=== PATIENT | male | born 1965 | race Caucasian/White ===

== ENCOUNTER → 2024-08-25 11:46 | Day surgery (SDC) | payer OTHER, SELFPAY ==
[2024-08-25] VITALS (8 sets, daily range): BP systolic 129–179; BP diastolic 90–118; BMI 31.7
[2024-08-25] MEDS: LOW STRENGTH ASPIRIN 81 MG PO (12:43)
[2024-08-25] MEDS: NSS 309 ML IV (12:44)
[2024-08-25 12:45] LABS: Glucose - Point of Care 167 mg/dl (70-99)
[2024-08-25 18:00] LABS: Glucose - Point of Care 122 mg/dl (70-99)
--- NOTE | 2024-08-25 20:55 | ITS.CL.PN ---
[employer] - Procedure Note
Procedure
Procedure Note:
CARDIAC CATHETERIZATION REPORT
Date of Procedure: 08/25/2024
Referring: Dr. Tera Morales DO
Indication: anginal chest pain, positive cardiac stress test
PROCEDURE(S)
1. left heart catheterization
2. coronary angiography
3. iFR of LAD
4. moderate sedation > 15 minutes
5. ultrasound guided vascular access
ACCESS: 6F right radial artery (closure: radial band)
CATHETERS
1. 6F JR4
2. 6F JL4
3. 6F EBU3.75 guide catheter
Moderate Sedation: Greater than 15 minutes of moderate sedation was utilized. An independent medical library assistant was present to assist with and help manage the patient's level of consciousness and physiologic status.
Ultrasound Guided Vascular Access (right radial artery): Ultrasound was utilized for vascular access. The vessel was visualized under ultrasound and noted to be patent. An image of the vessel was stored permanently in the patient's medical record.
Under direct ultrasound guidance, vascular access was obtained using a modified Seldinger technique and a 6 Portuguese sheath was placed.
HEMODYNAMIC DATA
LV 125/17 (EDP 28) mmHg
AO 135/83 (mean 104) mmHg
CORONARY ANGIOGRAPHY
Dominance: right
LM: Large with mild disease
LAD: Large vessel giving rise to a large D1 and small D2. There are stents in the proximal to mid LAD jailing the D1 with moderate ISR. There is a stent in the D1 with moderate ISR. The remainder the vessel has diffuse mild disease.
LCx: Large vessel giving rise to a small OM1, large OM 2, and moderate caliber OM 3. The vessel is totally occluded before OM2 with OM2 and OM3 filled retrograde via robust left to left collaterals.
RCA: Large vessel with multiple stents in the proximal to mid portion. There is a total occlusion proximally within stent. There are faint right to right collaterals and robust [id number] collaterals filling the distal RPDA/PRL system.
iFR of LAD
An Omni wire was flushing and zeroed outside the body and then advanced to the left main. The wire introducer was removed and the system flush, after which pressure of the wire and guide were normalized. The wire was advanced to the mid LAD and iFR
recorded at 0.83. iFR pullback was performed noting the majority of the contribution from the stented portion of the proximal LAD. On return to the left main, iFR appropriately normalized to ~1.0, confirming lack of wire drift.
RADIATION: dose 540 mGy; DAP 33.4 Gy*cm2; fluoroscopy time 8.1 min
CONCLUSIONS
1. Severe triple-vessel coronary artery disease in a right dominant system.
2. Elevated LV filling pressure and no aortic stenosis
RECOMMENDATIONS
1. expectant management after cardiac catheterization via right radial approach
2. aggressive secondary prevention of coronary artery disease
3. referral for coronary artery bypass grafting given severe, high syntax score, three-vessel coronary artery disease in a symptomatic, young, diabetic patient with reduced EF
Copy to: Dr. Tera Morales DO (application technical designer); Dr. Gil Avila MD (PCP)
Signed: Prashanth Marcus MD, PhD
[2024-08-28 14:50] LABS: ACT-LR - POC > 397 Seconds (116-155)
== END | disposition home or self-care (01) ==
LOC: CATH 11:46
PROVIDERS: ATTENDING PHYSICIAN Student in an Organized Health Care Education/Training Program; CONSULT PHYSICIAN Thoracic Surgery (Cardiothoracic Vascular Surgery); FAMILY PHYSICIAN Family Medicine; OTHER PHYSICIAN Internal Medicine Cardiovascular Disease
DX: I25.119 Atherosclerotic heart disease of native coronary artery with unspecified angina pectoris (principal); Z79.82 Long term (current) use of aspirin; Z79.84 Long term (current) use of oral hypoglycemic drugs; E11.9 Type 2 diabetes mellitus without complications
CPT/HCPCS: 99152; 93799; 76937; 82962; 85347; 93005; 93458; C1769; C1894; Q9967

== ENCOUNTER 2024-09-14 04:55 | Inpatient (IN) | payer OTHER, SELFPAY ==
[2024-09-07 12:06] VITALS: BMI 32.3
[2024-09-07 13:03] LABS: Hemoglobin 17.6 g/dL (13.0-18.0); Mean Corp Hgb Conc. 34.5 g/dL (33.0-37.0); Mean Corpuscular Hgb 32.2 pg (27.0-31.0); Mean Corpuscular Volume 93.2 fL (80.0-94.0); Mean Platelet Volume 9.7 fL (7.4-10.4); Platelet Count 230 10^3/uL (130-400); Red Blood Cell Count 5.47 10^6/uL (4.70-6.10); Red Cell Dist. Width 13.1 % (11.5-14.5); White Blood Cell Count 7.6 10^3/uL (4.8-10.8)
[2024-09-07 13:05] LABS: INR 0.95
[2024-09-07 13:06] LABS: APTT 33.5 Sec (23.4-35.0)
[2024-09-07 13:16] LABS: Urine Albumin 1+ (Neg - Trace); Urine Bilirubin Negative (Negative); Urine Character Clear (Clear); Urine Color Yellow; Urine Glucose 3+ (Negative); Urine Ketone Negative (Negative); Urine Leukocyte Trace (Negative); Urine Nitrite Negative (Negative); Urine Occult Blood Negative (Negative); Urine Specific Gravity 1.015 (<1.030); Urine Urobilinogen Negative (Neg - 1+)
--- NOTE | 2024-09-07 13:41 | CM ---
Chart reviewed. Met with the patient in PAT. Reviewed preoperative and postoperative instructions and restrictions, along with showering guidelines. Gave patient 2 soaps. Patient is independent of ADLS, lives with a roommate in a 2 S[address], full
flight of steps to enter, 0 DME. Patient is agreeable to a home visit by CT Transitional RN. Plan is for the patient to return home by CT Transitional RN.
[2024-09-07 14:23] LABS: Glycohemoglobin (HgbA1c) 8.8 % (4.0-5.6)
[2024-09-07 14:47] LABS: Urine Red Blood Cell 0-2 /HPF (0-2); Urine Squamous Cell 0-2 /LPF (Few)
[2024-09-07 15:00] LABS: ALT (SGPT) 28 U/L (0-50); AST (SGOT) 25 U/L (17-59); Alkaline Phosphatase 113 U/L (38-126); Blood Urea Nitrogen 11 mg/dl (9-20); Calcium 9.8 mg/dl (8.4-10.2); Carbon Dioxide 30 mmol/L (22-30); Chloride 99 mmol/L (98-107); Direct Bilirubin 0.1 mg/dl (0.0-0.4); Estimated Creatinine Clearance 120 ml/min; Glucose 131 mg/dl (70-99); Potassium 4.8 mmol/L (3.5-5.1); Sodium 138 mmol/L (135-145); Total Bilirubin 0.7 mg/dl (0.2-1.3); Total Protein 7.4 g/dl (6.3-8.2); eGFR > 60.00
[2024-09-14] VITALS (12 sets, daily range): BP systolic 90–129; BP diastolic 67–95; BMI 31.3
[2024-09-14] MEDS: LOPRESSOR 25 MG PO (05:32)
[2024-09-14] MEDS: PROTONIX 40 MG PO (05:33)
[2024-09-14] MEDS: MAGNESIUM OXIDE 500 MG PO (05:33)
[2024-09-14] MEDS: BACTROBAN 2% OINTMENT 1 APPLIC NASAL ×2 (05:38→20:20)
--- NOTE | 2024-09-14 06:36 | W.CVOR.SURPR ---
Addendum entered and electronically signed by Jaime Dominique MD 09/14/24 06:40:
Pt. stopped smoking yesterday
L radial artery unable to be used for conduit secondary to incomplete arch w/ radial artery dependent flow in 1st digit. This is possibly secondary to remote injury to his left hand requiring reconstruction especially given the brisk capillary
refill observed elsewhere on [place] testing in the office. Will proceed with BLANCA and GSV for conduit.
Original Note:
CVOR Surgeon Immed Pre Op
-
I have examined this patient prior to performance of the scheduled procedure.
The patient's condition is unchanged from the time of the dictated/written History and
Physical and the patient is able to undergo the scheduled procedure.
[2024-09-14 07:43] LABS: ACT+ - POC 101 Seconds (82-134)
[2024-09-14 08:24] LABS: Urine Albumin 3+ (Neg - Trace); Urine Bilirubin Negative (Negative); Urine Character Clear (Clear); Urine Color Yellow; Urine Glucose Negative (Negative); Urine Ketone Negative (Negative); Urine Leukocyte Negative (Negative); Urine Nitrite Negative (Negative); Urine Occult Blood 1+ (Negative); Urine Urobilinogen Negative (Neg - 1+)
[2024-09-14 09:24] LABS: Urine Mucus Many; Urine Squamous Cell 0-2 /LPF (Few)
[2024-09-14 09:25] LABS: Urine Amorphous Seen
[2024-09-14 09:26] LABS: Urine Bacteria Few (Negative); Urine Red Blood Cell 0-2 /HPF (0-2); Urine White Cell 0-2 /HPF (0-5)
[2024-09-14 09:56] LABS: B.E. - POC 0.7 mmol/L; Glucose - POC 225 mg/dl (70-99); HCO3 - POC 29 mmol/L (21-28); Hematocrit - POC 38 % PCV (42-52); Hemodilution- POC Yes; Hemoglobin Calculated - POC 12.9; Ionized Calcium - POC 1.25 mmol/L (1.15-1.33); Lactate - POC 0.96 mmol/L (0.36-0.75); O2 Saturation %Calculated-POC 99.6 % (94-98); PCO2 - POC 61 mmHg (35-48); PO2 - POC 217 mmHg (83-108); POC Comment PRE; Sodium - POC 140 mmol/L (136-145); Specimen Type - POC Arterial; pH - POC 7.28 (7.35-7.45)
[2024-09-14 09:56] LABS: ACT+ - POC 510 Seconds (82-134)
[2024-09-14 10:13] LABS: ACT+ - POC 527 Seconds (82-134)
[2024-09-14 10:47] LABS: B.E. - POC 5.6 mmol/L; Glucose - POC 193 mg/dl (70-99); HCO3 - POC 30 mmol/L (21-28); Hematocrit - POC 30 % PCV (42-52); Hemodilution- POC Yes; Hemoglobin Calculated - POC 10.2; Ionized Calcium - POC 1.07 mmol/L (1.15-1.33); Lactate - POC 0.72 mmol/L (0.36-0.75); PCO2 - POC 45 mmHg (35-48); PO2 - POC 500 mmHg (83-108); POC Comment CPB; Sodium - POC 138 mmol/L (136-145); Specimen Type - POC Arterial; pH - POC 7.44 (7.35-7.45)
[2024-09-14 10:48] LABS: ACT+ - POC 574 Seconds (82-134)
[2024-09-14 11:11] LABS: Glucose - POC 191 mg/dl (70-99); HCO3 - POC 26 mmol/L (21-28); Hematocrit - POC 32 % PCV (42-52); Hemodilution- POC Yes; Hemoglobin Calculated - POC 10.9; Ionized Calcium - POC 1.06 mmol/L (1.15-1.33); Lactate - POC 1.78 mmol/L (0.36-0.75); PCO2 - POC 39 mmHg (35-48); PO2 - POC 396 mmHg (83-108); POC Comment CPB; Potassium - POC 4.3 mmol/L (3.5-5.1); Sodium - POC 139 mmol/L (136-145); Specimen Type - POC Arterial; pH - POC 7.44 (7.35-7.45)
[2024-09-14 11:15] LABS: ACT+ - POC 500 Seconds (82-134)
[2024-09-14 11:43] LABS: B.E. - POC 2.7 mmol/L; Glucose - POC 194 mg/dl (70-99); HCO3 - POC 26 mmol/L (21-28); Hematocrit - POC 34 % PCV (42-52); Hemodilution- POC Yes; Hemoglobin Calculated - POC 11.7; Ionized Calcium - POC 1.12 mmol/L (1.15-1.33); Lactate - POC 2.76 mmol/L (0.36-0.75); O2 Saturation %Calculated-POC 99.8 % (94-98); PCO2 - POC 35 mmHg (35-48); PO2 - POC 214 mmHg (83-108); POC Comment CPB; Potassium - POC 3.7 mmol/L (3.5-5.1); Sodium - POC 140 mmol/L (136-145); Specimen Type - POC Arterial; pH - POC 7.48 (7.35-7.45)
[2024-09-14 11:44] LABS: ACT+ - POC 584 Seconds (82-134)
--- NOTE | 2024-09-14 11:58 | CM ---
Chart reviewed. Patient is in the OR today. Patient is independent of ADLS, lives with a roommate in a 2 STH, full flight of RAMON, 0 DME. Plan is for the patient to return home with CT Transitional RN. CM to follow
[2024-09-14 12:06] LABS: B.E. - POC 1.2 mmol/L; Glucose - POC 174 mg/dl (70-99); HCO3 - POC 26 mmol/L (21-28); Hematocrit - POC 33 % PCV (42-52); Hemodilution- POC Yes; Hemoglobin Calculated - POC 11.3; Ionized Calcium - POC 1.15 mmol/L (1.15-1.33); Lactate - POC 3.31 mmol/L (0.36-0.75); O2 Saturation %Calculated-POC 99.9 % (94-98); PCO2 - POC 40 mmHg (35-48); PO2 - POC 304 mmHg (83-108); POC Comment CPB; Potassium - POC 3.4 mmol/L (3.5-5.1); Sodium - POC 142 mmol/L (136-145); Specimen Type - POC Arterial; pH - POC 7.42 (7.35-7.45)
[2024-09-14 12:09] LABS: ACT+ - POC 532 Seconds (82-134)
[2024-09-14 12:34] LABS: B.E. - POC 0.1 mmol/L; Glucose - POC 160 mg/dl (70-99); HCO3 - POC 25 mmol/L (21-28); Hematocrit - POC 33 % PCV (42-52); Hemodilution- POC Yes; Hemoglobin Calculated - POC 11.4; Ionized Calcium - POC 1.12 mmol/L (1.15-1.33); Lactate - POC 4.12 mmol/L (0.36-0.75); O2 Saturation %Calculated-POC 99.9 % (94-98); PCO2 - POC 39 mmHg (35-48); PO2 - POC 313 mmHg (83-108); POC Comment WARM; Potassium - POC 3.4 mmol/L (3.5-5.1); Sodium - POC 143 mmol/L (136-145); Specimen Type - POC Arterial; pH - POC 7.41 (7.35-7.45)
[2024-09-14 12:34] LABS: ACT+ - POC 492 Seconds (82-134)
[2024-09-14 12:53] LABS: ACT+ - POC 528 Seconds (82-134)
[2024-09-14 13:06] LABS: B.E. - POC 1.7 mmol/L; Glucose - POC 161 mg/dl (70-99); HCO3 - POC 28 mmol/L (21-28); Hematocrit - POC 38 % PCV (42-52); Hemodilution- POC No; Hemoglobin Calculated - POC 13.1; Ionized Calcium - POC 1.22 mmol/L (1.15-1.33); Lactate - POC < 0.30 mmol/L (0.36-0.75); PCO2 - POC 49 mmHg (35-48); PO2 - POC 400 mmHg (83-108); POC Comment PRE; Potassium - POC 3.7 mmol/L (3.5-5.1); Sodium - POC 141 mmol/L (136-145); Specimen Type - POC Arterial; pH - POC 7.36 (7.35-7.45)
[2024-09-14 13:22] LABS: ACT+ - POC 104 Seconds (82-134)
[2024-09-14 13:23] LABS: Glucose - POC 129 mg/dl (70-99); HCO3 - POC 25 mmol/L (21-28); Hematocrit - POC 29 % PCV (42-52); Hemodilution- POC Yes; Hemoglobin Calculated - POC 9.8; Ionized Calcium - POC 1.45 mmol/L (1.15-1.33); Lactate - POC 3.41 mmol/L (0.36-0.75); PCO2 - POC 45 mmHg (35-48); PO2 - POC 137 mmHg (83-108); POC Comment POST; Potassium - POC 2.8 mmol/L (3.5-5.1); Sodium - POC 142 mmol/L (136-145); Specimen Type - POC Arterial; pH - POC 7.35 (7.35-7.45)
--- NOTE | 2024-09-14 14:00 | W.IMMPOSTOP ---
Addendum entered and electronically signed by Jaime Dominique MD 09/14/24 14:48:
[id number]
Original Note:
Surgical Immed Post Op Note
-
CARDIAC SURGERY OPERATIVE NOTE:
Preoperative Dx:
MVCAD
Hx of multiple cardiac stents
Active smoking ('Quit yesterday')
Postoperative Dx:
Same
Procedures:
1) Median sternotomy
2) Takedown of BLANCA (narrow pedicle)
3) Open/endoscopic harvest/prep of RLE GSV
4) CABG x 4 (BLANCA to LAD, GSV to D1, GSV to OM2, GSV to RPDA)
Surgeon:
Jaime Dominique M.D.
Assistants:
Ellen RooneyA.-CArmond; pediatric physician assistant throughout
Ellen PayanA.-[place]; open/endoscopic harvest/prep of RLE GSV; closure of RLE incisions
Andres Francois P.A.-C.; assisted w/ open/endoscopic harvest/prep of RLE GSV
Anesthesia:
Pawel Trujillo M.D. and Lamberto SinghN.A.
Perfusion:
Diana Resendez, C.C.P.; XC: 101min, CPB 147min
Findings:
BLANCA was healthy conduit w/ extremely brisk blood flow; ELD 2.75mm
GSV was good conduit w/ variable wall thickness from normal to slightly thin; ELD 3.00-4.25mm
Apical LAD was visible on the epicardial surface, mid-LAD was intramyocardial. Anastomosis at distal midpoint (under approximate 0.5cm of adipose and 3-4mm of myocardium) w/ health wall w/ ELD 2.75mm
D1 was visible on the epicardial surface, prior stent visible. Anastomosis performed approximately 1cm distal to stent; ELD 2.20mm.
OM2 was visible on the epicardial surface, scattered calcifications. Normal gallardo at midpoint anastomosis; ELD 2.25mm.
RPDA was visible on the epicardial surface, scattered calcifications. Normal gallardo at proximal 1/3rd anastomosis; ELD 2.00mm.
Excellent flow in all grafts on transit-time U/S flow probe assessment
Post-PETR: LVEF 50%, normal RV, mild MR, trace TR, no aortic valve abnormalities
Implants:
CT x 4 (B/L pleural, inferior mediastinal, superior mediastinal)
ARNALDO drain in RLE
Sternal wires x 7
Sternal 'X' plate w/ 8 - 14mm screws
Sternal 'Square' plate w/ 4 - 10mm screws
Complications:
None
Transfusions:
None
Condition:
78 sinus (0.2/-0.1), 102/65; 33/24; CVP 17; CO/CI: 4.86/2.15; 99%
GTTS: levophed 2, precedex 0.7, insulin 2
Stable/guarded to CVICU
CTs placed to suction at 14:05 (minimal initial output)
[2024-09-14 14:46] LABS: Glucose - Point of Care 112 mg/dl (70-99)
[2024-09-14 14:53] LABS: Hematocrit 31.9 % (39.0-52.0); Hemoglobin 11.6 g/dL (13.0-18.0); Platelet Count 126 10^3/uL (130-400)
[2024-09-14 14:59] LABS: B.E. -0.1 mmol/L; HCO3 25.9 mmol/L (21-28); PCO2 47 mmHg (35-48); PO2 86 mmHg (83-108); Potassium 3.7 mMOL/L (3.5-5.1); Sodium 138 mMOL/L (136-145); pH 7.35 (7.35-7.45)
[2024-09-14] MEDS: NSS 500 IV (14:59)
[2024-09-14] MEDS: NOVOLOG FLEXPEN SC ×2 (14:59→16:22)
[2024-09-14] MEDS: ANCEF 10 IV ×2 (14:59)
[2024-09-14] MEDS: TYLENOL PO (15:00)
[2024-09-14] MEDS: VERSED 0.5 MG IV ×4 (15:00→15:45)
[2024-09-14 15:05] LABS: INR 1.39; PT 17.6 Sec (11.4-14.6)
[2024-09-14 15:06] LABS: APTT 30.9 Sec (23.4-35.0)
--- NOTE | 2024-09-14 15:13 | PTCARENOTE ---
Received pt from the CVOR into 226, sinus rhythm on tele HR 80's, right radial wally leveled and zeroed, BP 112/62, + peripheral pulses, no edema.Right IJ cordis w swan floated to 55, PAP 23/12, CVP 4. Lungs diminished, ETT #8/24 lip VENT SETTINGS:
500/14/60%/+5 PEEP, pox 95%. +bs, lewis draining yellow, CTx4 w red drainage. drain to right leg w red drainage.
[2024-09-14 15:15] LABS: Blood Urea Nitrogen 8 mg/dl (9-20); Estimated Creatinine Clearance > 125 ml/min; Glucose 108 mg/dl (70-99); Magnesium 2.5 mg/dl (1.6-2.3)
[2024-09-14] MEDS: DILAUDID 0.5 MG IV ×3 (15:20→22:05)
--- NOTE | 2024-09-14 15:20 | W.PN.CD ---
Addendum entered and electronically signed by Mike Caban MD 09/14/24 17:06:
Patient seen and examined in collaboration with [employer]; agree with below.
-59-year-old chronic continued smoker and ischemic cardiomyopathy (EF 40-45%), hypertension, hyperlipidemia, diabetes, and obesity admitted for elective CABG x 4.
-Patient is stable currently postoperatively.
-On low-dose Levophed.
-Continue management as directed by CT Surgery.
-Continue monitoring tech; will follow.
Original Note:
Today's Communication / Plan
-
Close post-op monitoring and care with weaning of drips and vent as tolerated per CT surgery/CVICU protocol.
Impression / Plan
-
59 y/o male (patient of Dr. Morales) with CAD with hx stenting, ICM EF 40-45%, hypertension, dyslipidemia, DM, and smoking who is now s/p CABG.
CAD s/p CABG x 4 (BLANCA to LAD, GSV to D1, GSV to OM2, GSV to RPDA), Dr. Dominique 09/14/24:
-intubated and ventilated post-op. Based on first CXR, had bedside bronch, now improved.
-remains on Levophed, which requires intensive monitoring
-CT's, Mcnally in place
-EF 50% per CT surgery report
-ASA, statin, BB when able
-post-op EKG SR with a PAC- stable overall. Tele SR- follow.
ICM:
-OP notes report EF 40-45%, operative report 50%
-on Entresto, Jardiance, and metoprolol as OP
-monitor volume post-op
Hypertension:
-monitor post-op
Dyslipidemia:
-statin
DM II:
-on insulin drip post-op per protocol
Smoking:
-needs education on cessation when awake
Physical Exam
Vital Signs/Labs
Vital Signs
Temp Pulse Resp BP Pulse Ox
96.5 F L 82 16 129/95 95
09/14/24 15:01 09/14/24 15:00 09/14/24 15:01 09/14/24 05:32 09/14/24 15:11
09/13/24 09/14/24 09/15/24
06:59 06:59 06:59
Actual Weight 104.5 kg
09/14/24 14:45
PT 17.6 Sec (11.4-14.6) H 09/14/24 14:45
INR 1.39 09/14/24 14:45
APTT 30.9 Sec (23.4-35.0) 09/14/24 14:45
Magnesium 2.5 mg/dl (1.6-2.3) H 09/14/24 14:45
Physical Exam
Constitutional: No acute distress
EENT: Anicteric
Cardiovascular: Rhythm & rate is regular
Respiratory: Lungs clear to auscul. and Other (intubated/ventilated)
Neuro/Psych: Other (sedated)
Other: Skin (midsternal incision CDI)
Data Reviewed
-
Date of Service: September 14, 2024
EKG: Tracing Personally Visualized and interpreted (SR with PVC) and Other (SR- telemetry)
X-Ray/CT/US/MRI/NUC/PET: Image Personally Visualized and interpreted (first CXR with RUL atelectasis)
Labs: Labs Reviewed by me
--- NOTE | 2024-09-14 15:29 | PTCARENOTE ---
bedside bronch completed
[2024-09-14] MEDS: KCL 50 IV ×2 (15:31→16:53)
--- NOTE | 2024-09-14 15:37 | PTCARENOTE ---
repeat CXR completed
[2024-09-14 15:38] LABS: Glucose - Point of Care 131 mg/dl (70-99)
--- NOTE | 2024-09-14 15:38 | CON.INTV ---
Consultation
Consultation Request
Date/Time Consultation Requested: 09/14/2024
Date/Time Consultation Performed: 09/14/2024
Reason for Consultation: Critical care
Medical History
-
History of Present Illness:
History obtained from the chart as patient is currently intubated. Patient is a 59-year-old male significant smoking history, diabetes, hypertension, hyperlipidemia, ongoing smoking who was found to have multivessel coronary disease. He has
multiple stents in the past, presented with chest pain and shortness of breath. Stress test was abnormal, echo showed EF of 43%. Patient is status post CAB x 3 on 09/14/24. We are asked to help from critical care standpoint
Of note, patient did have some oxygenation issues per CT surgery PA. Postoperative chest x-ray showed right upper lobe atelectasis.
Patient currently on 60%, saturation 94%, volume-cycled evaluation
.
PMH hypertension, hyperlipidemia, diabetes,: Coronary disease with multiple stents in the past 2009, 2012, 2016. History of GERD/Liriano's esophagitis, diverticulosis, history of melanoma. History of right rotator cuff repair 2015
Past Medical History
Past Medical History: None (See above)
Past Surgical History: None (See above)
Social History
Tobacco: Smoker (Active smoker, 1 pack a day, 45 years)
Alcohol: Occasional
Drug: None
Personal:
Living: Alone
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
Family History
Family History: Other (Unremarkable)
Allergies / Home Medications
Allergies
Allergy/AdvReac Type Severity Reaction Status Date / Time
acetaminophen [From Percocet] Allergy hiccups Verified 09/06/24 10:47
oxycodone [From Percocet] Allergy hiccups Verified 09/06/24 10:47
Home Medications
�Medication �Instructions �Recorded �Confirmed �Last Taken �Type
aspirin 81 mg tablet,delayed 81 mg PO HS 08/25/24 09/14/24 09/13/24 History
release
cholecalciferol (vitamin D3) 100 100 mcg PO HS 08/25/24 09/14/24 09/06/24 History
mcg (4,000 unit) tablet
empagliflozin 25 mg tablet 25 mg PO DAILY 08/25/24 09/14/24 09/10/24 History
(Jardiance)
metformin 500 mg tablet 500 mg PO BID 08/25/24 09/14/24 09/13/24 History
metoprolol succinate 25 mg 25 mg PO HS 08/25/24 09/14/24 09/13/24 History
tablet,extended release 24 hr
omega 3 350 mg-dha 235 mg-epa 90 1 cap PO 08/25/24 09/14/24 09/06/24 History
mg-fish oil 597 mg capsule,delay
rel ([place]-3)
omeprazole 20 mg tablet,delayed 20 mg PO DAILY 08/25/24 09/14/24 09/13/24 History
release
psyllium husk 6 gram oral powder 10 g PO DAILY 08/25/24 09/14/24 09/06/24 History
packet
rosuvastatin 20 mg tablet 20 mg PO HS 08/25/24 09/14/24 09/13/24 History
sacubitril 24 mg-valsartan 26 mg 1 tab PO BID 08/25/24 09/14/24 09/11/24 History
tablet (Entresto)
quercetin 500 mg capsule 500 mg PO DAILY 09/06/24 09/14/24 09/06/24 History
Review of Systems
-
Unable to Obtain full review of systems at this time due to: Patient Intubation
All other systems: Negative unless noted
Vitals / Labs / Diagnostic Testing
Vital Signs
Temp Pulse Resp BP Pulse Ox
96.5 F L 84 16 129/95 95
09/14/24 15:01 09/14/24 15:15 09/14/24 15:01 09/14/24 05:32 09/14/24 15:15
Lab Data
09/14/24 14:45
Laboratory Results
09/14/24
14:45
PT 17.6 H
INR 1.39
APTT 30.9
pH 7.35
pCO2 47
pO2 86
HCO3 25.9
O2 Delivery Level
Diagnostic Testing:
Physical Exam
-
HEENT: Normocephalic and Other (IJ, A-line, chest tube)
Cardiovascular: S1/S2, Regular Rhythm, Murmur (n), Rub (n), Peripheral Edema (n) and Other (Lower extremity bandage, ARNALDO drain)
Respiratory: Wheeze (n), Rales (n), Rhonchi (n) and Other (Decreased breath sounds right apex anteriorly)
GI: Soft, Non Distended and Non Tender
Neurology: Other (Sedated)
Skin: Good Color and Other (Chest tube x 2)
General: Comfortable
Assessment
-
59-year-old male history of multivessel coronary disease multiple stents in the past, ischemic cardiomyopathy EF 43%, abnormal echocardiogram with worsening symptoms now status post bypass surgery 09/14/2024
S/p CAB x 4 on 09/14/24
Multivessel coronary disease
Multiple stents in the past
Ischemic cardiomyopathy, EF 43%
Right upper lobe atelectasis, hypoxia
94% on 60% FiO2
Conditions present prior to admission
Hypertension/hyperlipidemia
Diabetes
GERD/Liriano's esophagitis
History of melanoma
History of diverticulosis
[id number] history of smoking
Plan/recommendations
At this time, patient is critically ill but stable. Presently on low-dose norepinephrine, Precedex, insulin drip
Chest tube output noted, no airleak
Chest exam with decreased breath sounds right apex anteriorly
Chest x-ray with right upper lobe atelectasis, consolidation
EKG sinus rhythm, occasional PVCs. QTc 490
Moving forward
Continue with management per CT surgery
Remains on norepinephrine, Precedex, insulin drip
Chest x-ray and chest exam noted
Will plan for bedside bronchoscopy, likely mucous plugging
Apparently patient continues to smoke just prior to surgery
Preoperative spirometry normal
Nebulized therapy as needed
Patient will require airway clearance post procedure per protocol
Reviewed with critical care nursing, respiratory care, CT surgery
TCCT 31 min
--- NOTE | 2024-09-14 15:47 | W.PN.UPDATE ---
Update Note
Progress Note Update
Bronchoscopy note
Indications: Right upper lobe atelectasis, hypoxia
Informed consent: Requested to be done emergently by CT surgery. Postoperative right upper lobe atelectasis. Remains intubated
Findings: Patient remained on sedation throughout procedure. 2% lidocaine administered via ET tube. Flexible bronchoscope advanced via ET tube. Mild secretions noted in the mid and distal trachea. Significant plugging noted in right upper lobe
easily removed. Right upper lobe mucosa erythematous suggesting likely subacute plugging, bronchitis. Area was lavaged, no significant plugs noted. There were mild plugs noted in the left lower lobe and right lower lobe which were removed.
Patient tolerated procedure well. Patient had good cough during procedure
Would increase PEEP to 8 in the short-term to allow for appropriate recruitment, then can decrease back down to 5 once resume weaning process
Reviewed with CT surgery, critical care nursing, respiratory care
[2024-09-14 16:01] LABS: Hepatitis C Antibody Negative (Negative)
[2024-09-14] MEDS: PRECEDEX 100 IV (16:14)
--- NOTE | 2024-09-14 16:18 | W.PN.UPDATE ---
Update Note
Progress Note Update
59-year-old male was electively admitted on 09/14/2024 for CABG due to triple-vessel coronary disease
IV fluids: 1400
U.O.:� 550
Blood:� none
Wires:� none
Inotropes:� none
Pressors:� Levophed @ 1
Sedatives:� Precedex
�
NEURO: sedated, pupils +2mm B/L
RESP: #8OT @24cm> 500/60%/14/5. Lungs clear B/L. 2 mediastinal (5cc on arrival) and R/L pleural (5cc on arrival) chest tubes to -20cm suction. Sanguineous drainage
CV: RRR +S1, S2, no S3, no�rub, no murmur. Dermabond to median sternotomy. RIJ w/[place] locked @ 48cm
ABD: round, soft, no BS
EXT: no edema, +2/4 DP pulses B/L, no femoral bruit, RLE JACINTO wrap intact; right radial A-line intact; ARNALDO drain in RLE
: Mcnally with clear yellow urine
�
A/P: POD #0 s/p CABG x 4 (BLANCA to LAD, GSV to D1, GSV to OM2, GSV to RPDA)
PETR: report pending
- wean and extubate
# CAD
-will require ASA/Plavix, statin, beta-alba when off pressors
# HFrEF (pre-op 43%)
- resume home Entresto on discharge
�
# acute surgical blood loss anemia-expected
- trend CBC
�
# T2DM (A1C 8.8)
- insulin infusion x 48h
- consult diabetes RN PRIOR AUTHORIZATION
- resume home MFM, Jardiance
�
# Liriano's/GERD
- continue PPI>Protonix w/Plavix
[2024-09-14] MEDS: LR 250 ML IV ×2 (16:21→18:02)
[2024-09-14] MEDS: PACERONE PO (16:22)
[2024-09-14] MEDS: NEURONTIN PO (16:22)
[2024-09-14 16:31] LABS: Glucose - Point of Care 153 mg/dl (70-99)
[2024-09-14 17:38] LABS: Glucose - Point of Care 112 mg/dl (70-99)
[2024-09-14 18:06] LABS: B.E. -1.3 mmol/L; HCO3 23.7 mmol/L (21-28); Ionized Calcium 1.15 mMOL/L (1.15-1.33); O2 Saturation % 98.5 % (94-98); PCO2 40 mmHg (35-48); PO2 103 mmHg (83-108); Potassium 4.7 mMOL/L (3.5-5.1); Sodium 137 mMOL/L (136-145); pH 7.38 (7.35-7.45)
[2024-09-14 18:12] LABS: Hematocrit 35.4 % (39.0-52.0); Hemoglobin 12.7 g/dL (13.0-18.0); Platelet Count 184 10^3/uL (130-400)
[2024-09-14] MEDS: OFIRMEV 100 IV (18:18)
--- NOTE | 2024-09-14 18:21 | PTCARENOTE ---
pt extubated to 6L NC. Pox 92%.
[2024-09-14 18:44] LABS: Glucose - Point of Care 129 mg/dl (70-99)
[2024-09-14] MEDS: CALCIUM GLUCONATE 100 IV (18:53)
[2024-09-14 19:35] LABS: Glucose - Point of Care 140 mg/dl (70-99)
[2024-09-14] MEDS: ULTRAM 50 MG PO (19:43)
--- NOTE | 2024-09-14 20:00 | PTCARENOTE ---
Received pt from [facility]. Walking rounds completed. Pt assessment completed in bed. Pt is drowsy, oriented X4. No neuro deficits noted. NSR on monitor with occasional PVC's. HR 64, B/P 102/69. [place] @ 44. I/J Cordis to KVO. Both intact. A-line
zeroed and flushed. Bilateral upper and lower pulses palpable. Generalized trace edema throughout. Lungs diminished. Crackles in bases. POX 97% 8L midflow. C/T X4, all intact. Draining red fluid WNL. Mcnally intact, draining dark, yellow fluid WNL.
Hypoactive BS. Sternal incision Aquacel, CT dressing C/D/I, R groin dressing C/D/I, R leg incision, bobby bandage. Discussed plan of care with pt along with pain management. PT agrees with plan. Will continue to monitor pt needs.
[2024-09-14] MEDS: ANCEF 5 IV (20:20)
[2024-09-14] MEDS: LOW STRENGTH ASPIRIN 81 MG PO (20:20)
[2024-09-14] MEDS: SENOKOT-S 1 TABLET PO (20:20)
[2024-09-14] MEDS: FLEXERIL 5 MG PO (20:45)
[2024-09-14] MEDS: DILAUDID 0.25 MG IV (20:55)
[2024-09-14 21:39] LABS: Glucose - Point of Care 120 mg/dl (70-99)
[2024-09-14] MEDS: TYLENOL 1000 MG PO (21:59)
[2024-09-14] MEDS: NEURONTIN 100 MG PO (21:59)
[2024-09-14] MEDS: CRESTOR 20 MG PO (21:59)
[2024-09-14] MEDS: PACERONE 200 MG PO (22:00)
--- NOTE | 2024-09-14 23:20 | PTCARENOTE ---
VSS. Pt in NSR on monitor. HR 81, B/P 108/59 (73). Levo continued. Even care provided for pt. Pt c/o 7-8 Sternal discomfort. Pain medication provided. (See MAR) Pain management effective. Pt resting in bed. Will continue to monitor pt needs.
[2024-09-14 23:34] LABS: Glucose - Point of Care 102 mg/dl (70-99)
[2024-09-15] VITALS (41 sets, daily range): BP systolic 60–120; BP diastolic 21–94; PULSE 89; O2SAT 92–94; BMI 32.4
[2024-09-15] MEDS: DILAUDID 0.25 MG IV ×2 (00:30→05:05)
[2024-09-15 01:35] LABS: Glucose - Point of Care 116 mg/dl (70-99)
[2024-09-15] MEDS: DILAUDID 0.5 MG IV (02:10)
[2024-09-15 03:32] LABS: Glucose - Point of Care 105 mg/dl (70-99)
[2024-09-15] MEDS: ANCEF 5 IV ×2 (03:33→11:57)
[2024-09-15 03:38] LABS: Hemoglobin 11.4 g/dL (13.0-18.0); Mean Corp Hgb Conc. 35.6 g/dL (33.0-37.0); Mean Corpuscular Hgb 32.4 pg (27.0-31.0); Mean Corpuscular Volume 90.9 fL (80.0-94.0); Mean Platelet Volume 9.5 fL (7.4-10.4); Platelet Count 147 10^3/uL (130-400); Red Blood Cell Count 3.52 10^6/uL (4.70-6.10); Red Cell Dist. Width 13.2 % (11.5-14.5); White Blood Cell Count 11.7 10^3/uL (4.8-10.8)
--- NOTE | 2024-09-15 03:54 | PTCARENOTE ---
VSS. NSR on monitor with occassional PVC's, HR 70-80's. B/P 110/57 (71). Pt complained of 7-8/10 surgical pain. Pain medicine provided (SEE MAR), Pt expressed pain level was better. AM labs obtained and sent. ECG obtained. Pt resting in bed. Will
continue to monitor pt needs.
[2024-09-15 04:03] LABS: Blood Urea Nitrogen 12 mg/dl (9-20); Calcium 8.6 mg/dl (8.4-10.2); Carbon Dioxide 27 mmol/L (22-30); Chloride 106 mmol/L (98-107); Estimated Creatinine Clearance > 125 ml/min; Glucose 97 mg/dl (70-99); Magnesium 2.2 mg/dl (1.6-2.3); Potassium 4.4 mmol/L (3.5-5.1); Sodium 138 mmol/L (135-145); eGFR > 60.00
--- NOTE | 2024-09-15 04:14 | W.PN.CT ---
Today's Communication / Plan
-
-POD#1
-no issues overnight except for pain
-drips: levophed, insulin
-PAP 22/12, CVP 10, CI 2.28
-CT output: Mediastinal 195/345 and Pleurals 100/230 over 12/24 hrs.
-ARNALDO drain right LE 40/90 over 12/24 hrs.
-Continue ASA, Plavix, metoprolol, Crestor
-continue insulin drip
-OOB, ISB
Assessment / Plan
-
s/p CABG x 4 (BLANCA to LAD, GSV to D1, GSV to OM2, GSV to RPDA) POD#1
-CAD
-HFrEF (40-45%)
-DMII
-GERD
-Lriiano's esophagus
-acute blood loss anemia
Subjective
Procedure
s/p CABG x 4 (BLANCA to LAD, GSV to D1, GSV to OM2, GSV to RPDA) on 09/14/[address] Dominique
-
Date of Service: September 15, 2024
Objective Data
-
Lab Results
09/15/24 03:25
09/15/24 03:25
PT 17.6 Sec (11.4-14.6) H 09/14/24 14:45
INR 1.39 09/14/24 14:45
APTT 30.9 Sec (23.4-35.0) 09/14/24 14:45
Vital Signs
Vital Signs
Temp Pulse Resp BP Pulse Ox
98.6 F 81 12 106/74 96
09/15/24 04:00 09/15/24 04:00 09/15/24 04:00 09/15/24 04:00 09/15/24 04:00
CT Intake/Output/Weight
09/14/24 09/14/24 09/15/24
06:59 18:59 06:59
Intake Total 675.1 / 1068.9 393.8 / 1068.9
Output Total 615 / 1390 775 / 1390
Balance 60.1 / -321.1 -381.2 / -321.1
SaO2: 96
Physical Exam
-
General: AOx3
Cardiovascular: Regular rate & rhythm
Respiratory: Decreased Breath Sounds
Sternum: Stable
Incision: Dressing Intact
Extremities: Edema +1
[2024-09-15] MEDS: ULTRAM 50 MG PO ×3 (04:37→18:11)
--- NOTE | 2024-09-15 05:00 | PTCARENOTE ---
VSS. NSR on monitor. Pt delined as order by CTPA. Pt tolerated. Pt c/o pain. Dr. Dominique bedside. Medication ordered and provided. (See MAR). will continue to monitor pt needs.
[2024-09-15] MEDS: TYLENOL 1000 MG PO ×3 (05:46→22:44)
[2024-09-15] MEDS: FLEXERIL 5 MG PO ×2 (05:47→16:23)
[2024-09-15 06:35] LABS: Glucose - Point of Care 138 mg/dl (70-99)
[2024-09-15] MEDS: TORADOL 15 MG IV ×3 (06:45→19:51)
--- NOTE | 2024-09-15 07:23 | PN.DE.MGMTRT ---
Insulin Management
- -
09/15/2024: Diabetes Management Consult
59 year old male with PMH: HTN, HLD, HFrEF (40-45%), CAD, has multiple stents in the past, 2010, 2012, and 2017, Smoking, GERD/Liriano's esophagitis, diverticulosis, h/o melanoma, h/o right rotator cuff repair 2016, and T2DM. Pt presented with chest
pain and shortness of breath, found to have multivessel coronary disease. 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 He had no glucose meter at one point but does not test his blood sugars. States Jardiance was started 6 months
ago. A1C 8.8%, Cr 0.7, eGFR >60
POD # 1 s/p post CABG x 4 and doing well.
Patient is awake, alert, oriented, sitting up in chair, c/o mild to moderate substernal pain from chest tubes, able to discuss diabetes care.
He is currently on the glycemic protocol, glucose range 105 to 138, requiring 2-3 units of insulin/hr.
Will remain on current regimen and plan to transition off insulin infusion tomorrow at NOON.
Emphasized the importance of optimal glucose control to prevent any short and long winder tender complications.
Discussed diabetes mgt with basal/bolus insulin and pt declined stating that he would not be able to keep up with the 4 shorts a day.
He was willing to compromise and agreed to basal insulin with oral combination.
Plan of Transition off drip tomorrow: Give Lantus 10 units at noon, wait for 1.5 hrs then turn drip off.
Give Lantus 15 units @ HS. Start Farxiga 10mg daily (was taking Jardiance 25mg daily at home)
Resume Metformin 1000mg BID, 1st doses tomorrow morning.
Will follow up on Wednesday to provide glucose monitor and insulin instructions.
Diabetes History
- -
Type of Diabetes: 2 requiring insulin
Pre-Admission Diabetes Regimen
09/14/24 09/15/24
14:45 03:25
Creatinine 0.6 L 0.7
Lab Results
Hemoglobin A1c 8.8 % (4.0-5.6) H 09/07/24 12:26
Insulin Pump Settings
IP Diabetes Regimen
09/14/24 09/14/24 09/14/24
14:44 14:45 15:34
Glucose 108 H
POC Glucose 112 H 131 H
09/14/24 09/14/24 09/14/24
16:30 17:33 18:41
Glucose
POC Glucose 153 H 112 H 129 H
09/14/24 09/14/24 09/14/24
19:34 21:37 23:33
Glucose
POC Glucose 140 H 120 H 102 H
09/15/24 09/15/24 09/15/24
01:34 03:25 03:31
Glucose 97
POC Glucose 116 H 105 H
09/15/24
06:32
Glucose
POC Glucose 138 H
Patient Education
--- NOTE | 2024-09-15 07:50 | W.PN.INTV ---
Today's Communication / Plan
Recommendations
Airway clearance measures
Follow blood sugars, hemoglobin
Blood pressure noted, EF 50% postoperatively
Discussed importance of tobacco cessation
Remains on insulin drip
Once transferred to telemetry, we will sign off. Please call with questions
Assessment
-
59-year-old male history of multivessel coronary disease multiple stents in the past, ischemic cardiomyopathy EF 43%, abnormal echocardiogram with worsening symptoms now status post bypass surgery 09/14/2024
S/p CAB x 4 on 09/14/24
Multivessel coronary disease
Multiple stents in the past
Ischemic cardiomyopathy, EF 43%
Right upper lobe atelectasis, hypoxia
94% on 60% FiO2
Required emergent bronchoscopy postoperatively, significant right upper lobe plugging noted
Removed with improvement
Conditions present prior to admission
Hypertension/hyperlipidemia
Diabetes
GERD/Liriano's esophagitis
History of melanoma
History of diverticulosis
[id number] history of smoking
Plan/recommendations
At this time, patient is critically ill but stable. Presently on insulin drip
Chest tube output noted, no airleak
Chest exam improved
Chest x-ray improved
Moving forward
Continue with management per CT surgery
Incentive promptly, airway clearance
Follow blood pressures
Chest x-ray and chest exam noted
Patient at risk for recurrent plugging
Patient admits to plans to stop smoking. Discussed at length the importance of smoking cessation
Preoperative spirometry normal
Nebulized therapy as needed
Once transferred to telemetry, we will sign off. Please call with questions
Subjective Dataa
Subjective Data
Date of Service:
Date of Service: September 15, 2024
Subjective:
Patient seen and examined earlier today, late entry. Patient is feeling well. Sitting in chair. Mild splinting. Denies cough, hemoptysis. Denies nausea
Objective Data
Data Reviewed
Vital Signs / I&O / Oxygen:
Vital Signs
Temp Pulse Resp BP Pulse Ox
98 F 94 18 118/80 95
09/15/24 06:00 09/15/24 06:30 09/15/24 06:00 09/15/24 06:30 09/15/24 06:30
Intake and Output
09/14/24 09/15/24 09/16/24
06:59 06:59 06:59
Intake Total 1078.9 / 1078.9
Output Total 1560 / 1560
Balance -481.1 / -481.1
SaO2 [SIMV] 93
SaO2 95
Nasal Cannula flow liters per 6
minute
Physical Exam
General: Comfortable and Other (IJ, chest tube)
HEENT: Normocephalic and Anicteric
Cardiovascular: S1-S2, Regular Rhythm, Murmur (n), Rub (n) and Other (Lower extremity bandage)
Respiratory: Wheeze (n), Crackles (n), Rhonchi (n) and Non-Labored Respirations
GI: Soft, Non Distended and Non Tender
Neurology: Awake and Alert
Skin: Cyanosis (n), Jaundice (n) and Rash (n)
Labs/Micro/Reports
Lab Data
09/15/24 03:25
09/15/24 03:25
Laboratory Results
09/14/24 09/14/24
14:45 17:58
PT 17.6 H
INR 1.39
APTT 30.9
pH 7.35 7.38
pCO2 47 40
pO2 86 103
HCO3 25.9 23.7
O2 Delivery Level
[2024-09-15 08:50] LABS: Glucose - Point of Care 110 mg/dl (70-99)
[2024-09-15] MEDS: NEURONTIN 100 MG PO ×3 (08:55→22:43)
[2024-09-15] MEDS: LIDOCAINE 4% PATCH 1 PATCH TOPICAL (08:55)
[2024-09-15] MEDS: BACTROBAN 2% OINTMENT 1 APPLIC NASAL ×2 (08:55→19:49)
[2024-09-15] MEDS: PACERONE 200 MG PO ×3 (08:55→22:43)
[2024-09-15] MEDS: MAGNESIUM OXIDE 500 MG PO ×2 (08:55→19:50)
[2024-09-15] MEDS: LOPRESSOR 12.5 MG PO ×2 (08:55→19:49)
[2024-09-15] MEDS: PLAVIX 75 MG PO (08:56)
[2024-09-15] MEDS: FARXIGA 10 MG PO (08:56)
[2024-09-15] MEDS: SENOKOT-S 1 TABLET PO ×2 (08:56→19:50)
[2024-09-15] MEDS: PROTONIX 40 MG PO (08:56)
[2024-09-15] MEDS: LOW STRENGTH ASPIRIN 81 MG PO (08:56)
--- NOTE | 2024-09-15 09:00 | PTCARENOTE ---
Assumed care of patient. Walking rounds completed with previous RN. Pt assessed while he was lying in bed. Pt alert and oriented x4. Rates sternal pain as 'better', denies nausea. MCMANUS with equal strength throughout. 2 assist to get OOB to chair, pt
tolerated. NSR on tele with rates in the 70s-90s. BP105/76. +rub. Bilateral radial and DP pulses palpable. +1 edema in b/l ankles and b/l hands. POX 96% on 6L NC, titrated to 4L NC, POX 93%. Lungs diminished in the bases. + moist productive cough
with perea sputum. IS encouraged-1250mL achieved. Mediastinal chest tubes x2 y-sited to 1 atrium to -20cm suction draining red fluid. Right and left pleural chest tubes y-sited to 1 atrium to -20cm suction draining red fluid. Output WNL. Abdomen soft,
round. +BS. Due to void post lewis removal. Sternal incision covered with Aquacel-CDI. Chest tube dressing changed, CDI. Right groin puncture site dressing CDI. Surrounding area ecchymotic. Right SVG harvest approximated with skin glue, JACINTO CDI.
Right knee ARNALDO drain intact draining red fluid. Right IJ cordis intact infusing NSS KVO. Right hand 20g PIV intact infusing insulin gtt per Critical Care Glycemic Protocol. See MAR for medication administration. See worklist for complete nursing
assessment. Plan of care reviewed and patient in agreement.
[2024-09-15] MEDS: NSS IV (09:50)
[2024-09-15] MEDS: NOVOLOG FLEXPEN 4 UNITS SC ×3 (09:53→17:27)
[2024-09-15] MEDS: NOVOLIN R INSULIN INFUSION 100 IV (09:53)
--- NOTE | 2024-09-15 09:54 | W.PN.ANS.POP ---
Anesthesia Post Operative
- Anesthesia Post Op Note
Vital Signs Stable-See Nursing Note: Yes
Airway Patent: Yes
Adequate Pain Control: Yes
Change in Mental Status: No
Current Postoperative Nausea & Vomiting: No
Anesthesia Complications: No
General Anesthetic Recall: No
Unplanned Admission: No
Post Op Hydration Adequate: Yes
[2024-09-15 10:57] LABS: Glucose - Point of Care 98 mg/dl (70-99)
--- NOTE | 2024-09-15 12:00 | PTCARENOTE ---
Pt reassessed. Remains sitting in the chair. Actively participating in care. Rates sternal pain 4/10 post walking, 2/10 pre walking. NSR on tele with rates in the 70s. BP 102/70. POX 93% on 2L NC. Surgical site stable. CT output WNL. Bladder scanned
for 253mL, pt denies urge to void at this time. Remains on insulin gtt. Awaiting lunch tray.
[2024-09-15 12:34] LABS: Glucose - Point of Care 102 mg/dl (70-99)
--- NOTE | 2024-09-15 13:34 | W.PN.CD ---
Today's Communication / Plan
-
Agree with post-op care
Watch tele
Impression / Plan
-
59 y/o male (patient of Dr. Morales, [facility]) with CAD with hx stenting, ICM EF 40-45%, hypertension, dyslipidemia, DM, and smoking who is now s/p CABG.
CAD, 3 V
- s/p CABG x 4 (BALNCA to LAD, GSV to D1, GSV to OM2, GSV to RPDA), Dr. Dominique 09/14/24:
- Extubated, sitting in chair
ICM:
-OP notes report EF 40-45%, operative report 50%
-on Entresto, Jardiance, and metoprolol as OP
-monitor volume post-op
Hypertension:
-monitor post-op
Dyslipidemia:
-statin
DM II:
-on insulin drip post-op per protocol
Smoking, cessation is being reinforced
Subjective:
Doing well
Physical Exam
Vital Signs/Labs
Vital Signs
Temp Pulse Resp BP Pulse Ox
98.0 F 83 18 90/57 94
09/15/24 12:00 09/15/24 13:15 09/15/24 06:00 09/15/24 12:56 09/15/24 13:15
09/14/24 09/15/24 09/16/24
06:59 06:59 06:59
Actual Weight 104.5 kg 108.2 kg
09/15/24 03:25
09/15/24 03:25
PT 17.6 Sec (11.4-14.6) H 09/14/24 14:45
INR 1.39 09/14/24 14:45
APTT 30.9 Sec (23.4-35.0) 09/14/24 14:45
Magnesium 2.2 mg/dl (1.6-2.3) 09/15/24 03:25
Physical Exam
Constitutional: No acute distress
EENT: Anicteric
Cardiovascular: Rhythm & rate is regular and Pedal edema is absent
Respiratory: Respiratory effort normal and Lungs clear to auscul. (but decrease Left base)
GI: Soft and Distention absent
Data Reviewed
-
Date of Service: September 15, 2024
--- NOTE | 2024-09-15 14:13 | CM ---
Chart reviewed. Patient is independent of ADLS, lives with roommate, 2 STH, full flight to enter, 0 DME. Plan is for the patient to return home with CT Transitional RN. CM to follow
--- NOTE | 2024-09-15 15:15 | PTCARENOTE ---
Pt reassessed. 1 assist to stand at the side of the bed to urinate 525mL rhonda urine. Pt tolerated. NSR with occasional PVC with rates in the 70s. BP 91/70. POX 92% on 2L NC. JACINTO wrap removed from right leg, incision approximated, RECORD CLERK SALESPERSON. right ARNALDO
drain continues to drain red fluid. No other acute changes. Pt resting in bed at this time.
[2024-09-15 15:21] LABS: Glucose - Point of Care 159 mg/dl (70-99)
[2024-09-15] MEDS: COLCHICINE 0.3 MG PO (16:23)
[2024-09-15 17:07] LABS: Glucose - Point of Care 114 mg/dl (70-99)
[2024-09-15 19:15] LABS: Glucose - Point of Care 131 mg/dl (70-99)
--- NOTE | 2024-09-15 21:00 | PTCARENOTE ---
Patient received OOB in chair. Patient A+A+Ox3. No neurological deficits noted. Patient assisted to bed with assist x2. No c/o headache, dizziness or lightheadedness. Mild DE LA CRUZ. O2 at 2L via NC. SpO2 96%. Four chest tubes - Mediastinal x2 and
Right and Left Pleural - Intact and patent - 5-15 ml red drainage - No air leak. Patient given CHG bath and linens changed. Chest tube dressing changed. Right I.J. Cordis dressing changed. Sinus Rhythm. Occasional PVC. Heart rate 70-80's.
Rub. Patient with no c/o chest pain, pressure or discomfort. Abdomen soft, nontender. Normoactive bowel sounds. No BM. Positive flatus. No c/o nausea. No vomiting. Voiding. Sternal dressing intact. Right groin puncture site dressing intact
- Area ecchymotic. Right knee incision intact - Surgical adhesive - Open to air. Chidi-Garcia drain - Empty and compress - 20 ml red drainage. Insulin gtt - Glycemic Protocol. No c/o back or flank pain. Assessment as documented.
[2024-09-15 21:01] LABS: Glucose - Point of Care 125 mg/dl (70-99)
[2024-09-15] MEDS: CRESTOR 20 MG PO (22:43)
[2024-09-15 22:50] LABS: Glucose - Point of Care 102 mg/dl (70-99)
[2024-09-16] VITALS (20 sets, daily range): BP systolic 84–152; BP diastolic 53–140; PULSE 88; O2SAT 90–93; BMI 32.9
[2024-09-16] MEDS: ULTRAM 50 MG PO ×4 (00:24→20:50)
--- NOTE | 2024-09-16 00:30 | PTCARENOTE ---
Patient resting in bed. Sleeping intermittently. Ultram 50mg PO for 8/10 sternal pain. No further changes from previous assessment.
--- NOTE | 2024-09-16 00:42 | W.PN.CT ---
Today's Communication / Plan
-
Plan:
-No major issues overnight. Hemodynamically and neurologically intact
-Off all drips but insulin per protocol, will transition off today
-Tele phase when off insulin gtt
-Diabetes education/management PILOT MANAGER following
-Consider d/c of chest tubes: 2meds 60/230, R/L pleurals 60/130
-D/C Right LE ARNALDO 70/155
-Diuresis if BP permits, wt up 11lbs from preop
-Maintain cordis another day
-No temporary PW to cut
-Cont. current meds (ASA, Plavix, Lopressor, Crestor, Amiodarone)
-Encourage use of IS
-Wean off of O2
-OOB into chair/Ambulate
-Home in 1-2 days
Assessment / Plan
-
s/p CABG x 4 (BLANCA to LAD, GSV to D1, GSV to OM2, GSV to RPDA), by Dr. Dominique, 09/14/24, POD#2
-CAD
-HFrEF (40-45%)
-DMII
-Class 1 obesity (BMI 32.4)
-GERD
-Liriano's esophagus
-acute blood loss anemia (stable without blood transfusion)
-Acute postop thrombocytopenia (stable without active bleed)
-Acute postop atelectasis
-Acute postop hypovolemia with subsequent hypervolemia
Discussed patient care with: Cardiology, Nursing, Respiratory Therapy, Pharmacy and Care Team
Subjective
Procedure
s/p CABG x 4 (BLANCA to LAD, GSV to D1, GSV to OM2, GSV to RPDA) on 09/14/[address] Dominique
-
Date of Service: September 16, 2024
Pt c/o pleuritic chest pain, otherwise feels well
Objective Data
-
PT 17.6 Sec (11.4-14.6) H 09/14/24 14:45
INR 1.39 09/14/24 14:45
APTT 30.9 Sec (23.4-35.0) 09/14/24 14:45
Vital Signs
Vital Signs
Temp Pulse Resp BP Pulse Ox
98.7 F 75 18 95/72 96
09/15/24 22:40 09/16/24 00:20 09/15/24 22:40 09/16/24 00:20 09/16/24 00:20
CT Intake/Output/Weight
09/15/24 09/15/24 09/16/24
06:59 18:59 06:59
Intake Total 403.8 / 1091.5 1078.2 / 1631.2 553.0 / 1631.2
Output Total 945 / 1585 850 / 965 115 / 965
Balance -541.2 / -493.5 228.2 / 666.2 438.0 / 666.2
SaO2: 96 (2L)
Physical Exam
-
General: Awake, Oriented and AOx3
Cardiovascular: Regular rate & rhythm, No Murmurs, Rub and No Gallop
Sternum: Stable
Incision: Clean, Dry, Intact and Dressing Intact
Extremities: Other (+trace)
Data Reviewed
-
Lab Results: Results Reviewed
Medications: Active Meds Reviewed
Chest X-Ray: Report Reviewed and Image Reviewed
ECG: Report Reviewed and Image Reviewed
[2024-09-16 00:56] LABS: Glucose - Point of Care 106 mg/dl (70-99)
[2024-09-16 03:13] LABS: Glucose - Point of Care 89 mg/dl (70-99)
[2024-09-16] MEDS: NSS 500 IV (03:46)
[2024-09-16] MEDS: NOVOLIN R INSULIN INFUSION 100 IV (03:46)
[2024-09-16 03:50] LABS: Ionized Calcium 1.18 mMOL/L (1.15-1.33)
[2024-09-16 03:52] LABS: Hematocrit 26.9 % (39.0-52.0); Hemoglobin 9.4 g/dL (13.0-18.0); Mean Corp Hgb Conc. 34.9 g/dL (33.0-37.0); Mean Corpuscular Hgb 32.2 pg (27.0-31.0); Mean Corpuscular Volume 92.1 fL (80.0-94.0); Mean Platelet Volume 9.8 fL (7.4-10.4); Platelet Count 129 10^3/uL (130-400); Red Blood Cell Count 2.92 10^6/uL (4.70-6.10); Red Cell Dist. Width 13.4 % (11.5-14.5); White Blood Cell Count 9.5 10^3/uL (4.8-10.8)
--- NOTE | 2024-09-16 04:15 | PTCARENOTE ---
Patient sleeping. Patient easily awakens spontaneously. Patient A+A+Ox3. No neurological deficits noted. AM lab work collected and sent. OOB in AM. Due to void. Assessment/Interventions as documented.
[2024-09-16 04:20] LABS: Blood Urea Nitrogen 21 mg/dl (9-20); Calcium 8.1 mg/dl (8.4-10.2); Carbon Dioxide 29 mmol/L (22-30); Chloride 100 mmol/L (98-107); Estimated Creatinine Clearance 123 ml/min; Glucose 88 mg/dl (70-99); Magnesium 2.4 mg/dl (1.6-2.3); Potassium 3.8 mmol/L (3.5-5.1); Sodium 135 mmol/L (135-145); eGFR > 60.00
[2024-09-16] MEDS: KCL 40 MEQ PO (04:37)
[2024-09-16] MEDS: CALCIUM GLUCONATE 100 IV (04:37)
[2024-09-16] MEDS: TYLENOL PO (05:00)
[2024-09-16 05:38] LABS: Glucose - Point of Care 113 mg/dl (70-99)
[2024-09-16] MEDS: TORADOL 15 MG IV (05:55)
[2024-09-16 06:57] LABS: Glucose - Point of Care 116 mg/dl (70-99)
--- NOTE | 2024-09-16 07:07 | W.PN.INTV ---
Addendum entered and electronically signed by Dedrick Pop MD 09/16/24 15:00:
Patient transferred to telemetry. Pulmonary follow-up information left in chart
We will sign off. Please call with questions
Original Note:
Today's Communication / Plan
Recommendations
Ambulate
Airway clearance measures, incentive spirometry
Remains on insulin drip
Reviewed importance of tobacco cessation. Fortunately patient is not craving nicotine at this time
Assessment
-
59-year-old male history of multivessel coronary disease multiple stents in the past, ischemic cardiomyopathy EF 43%, abnormal echocardiogram with worsening symptoms now status post bypass surgery 09/14/2024
S/p CAB x 4 on 09/14/24
Multivessel coronary disease
Multiple stents in the past
Ischemic cardiomyopathy, EF 43%
Right upper lobe atelectasis, hypoxia
94% on 60% FiO2
Required emergent bronchoscopy postoperatively, significant right upper lobe plugging noted
Removed with improvement
Conditions present prior to admission
Hypertension/hyperlipidemia
Diabetes
GERD/Liriano's esophagitis
History of melanoma
History of diverticulosis
[id number] history of smoking
Plan/recommendations
At this time, patient is doing well, ambulating without difficulty. Presently on insulin drip
Chest exam improved
Chest x-ray improved, mild right perihilar atelectasis, likely mucous
Moving forward
Continue with management per CT surgery
Incentive promptly, airway clearance
Follow blood pressures
Chest x-ray and chest exam noted
Patient at risk for recurrent plugging
Patient admits to plans to stop smoking. Discussed at length the importance of smoking cessation
Preoperative spirometry normal
Nebulized therapy as needed
Encourage Acapella, incentive spirometry
Once transferred to telemetry, we will sign off. Please call with questions
Subjective Dataa
Subjective Data
Date of Service:
Date of Service: September 16, 2024
Subjective:
Patient feels well. Has mild cough. Ambulating without difficulty but does get short of breath after walk. Denies significant pain, nausea. Appears to be in good spirits
Objective Data
Data Reviewed
Vital Signs / I&O / Oxygen:
Vital Signs
Temp Pulse Resp BP Pulse Ox
98.1 F 79 18 113/70 96
09/16/24 03:20 09/16/24 06:00 09/16/24 03:20 09/16/24 05:42 09/16/24 06:42
Intake and Output
09/15/24 09/16/24 09/17/24
06:59 06:59 06:59
Intake Total 1078.9 / 1091.5 2038.7 / 2038.7
Output Total 1560 / 1585 1740 / 1740
Balance -481.1 / -493.5 298.7 / 298.7
SaO2 [SIMV] 93
SaO2 96
Nasal Cannula flow liters per 2
minute
Physical Exam
General: Comfortable
HEENT: Normocephalic and Anicteric
Cardiovascular: S1-S2, Regular Rhythm, Murmur (n), Rub (n) and Other (Lower extremity bandage)
Respiratory: Wheeze (Mild), Crackles (n), Rhonchi (n) and Non-Labored Respirations
GI: Soft, Non Distended and Non Tender
Neurology: Awake and Alert
Skin: Cyanosis (n), Jaundice (n) and Rash (n)
Labs/Micro/Reports
Lab Data
09/16/24 03:36
09/16/24 03:36
[2024-09-16] MEDS: NOVOLOG FLEXPEN 4 UNITS SC ×2 (07:24→12:38)
--- NOTE | 2024-09-16 07:25 | W.PN.CD ---
Today's Communication / Plan
-
Furosemide 40 mg x1 and monitor.
Incentive spirometry.
Ambulate.
Restart GDMT as hemodynamics will tolerate.
Chest tube/pain management per CT surgery.
Monitor H/H.
Impression / Plan
-
Impression/Plan: 59 y/o male (patient of Dr. Morales, [facility]) with history of CAD/PCI, ICMO (LVEF 40-45%), hypertension, dyslipidemia, DM, and smoking admitted for elective CABG.
#CAD
-Chronic, progressive.
-S/P CABG x 4 (BLANCA to LAD, GSV to D1, GSV to OM2, GSV to RPDA), Dr. Dominique 09/14/24:
-Routine postoperative management.
-Continue amiodarone, metoprolol and rosuvastatin.
-Encourage incentive spirometry, ambulation.
-Chest tube/pain control per CT surgery.
-Furosemide 40 mg x1 and monitor.
#ICMO
-Chronic.
-OP notes report EF 40-45%, operative report 50%.
-Continue metoprolol.
-Restart GDMT was hemodynamics will tolerate.
-Continue dapagliflozin 10 mg daily.
#Hypertension
-Chronic, currently normotensive.
-Monitor BP with reinstatement of GDMT.
#Dyslipidemia
-Chronic, stable.
-Continue rosuvastatin 20 mg daily.
-Goal LDL < 55.
#NIDDM
-Chronic.
-Insulin drip post-op per protocol.
-Restart metformin.
-Continue dapagliflozin 10 mg daily.
#Smoking
-Chronic.
-Cessation is being reinforced.
Subjective/Interval History:
Weight is up 5.4 kg (104.5 --> 108.2 --> 109.9).
BP is marginal (95 - 112).
Hbg = 11.6 --> 12.7 --> 11.4 --> 9.4.
SaO2 = 96% on 2L.
DATA:
Cardiac Catheterization, 08/25/2024:
CORONARY ANGIOGRAPHY
Dominance: right
LM: Large with mild disease
LAD: Large vessel giving rise to a large D1 and small D2. There are stents in the proximal to mid LAD jailing the D1 with moderate ISR. There is a stent in the D1 with moderate ISR. The remainder the vessel has diffuse mild disease.
LCx: Large vessel giving rise to a small OM1, large OM 2, and moderate caliber OM 3. The vessel is totally occluded before OM2 with OM2 and OM3 filled retrograde via robust left to left collaterals.
RCA: Large vessel with multiple stents in the proximal to mid portion. There is a total occlusion proximally within stent. There are faint right to right collaterals and robust [id number] collaterals filling the distal RPDA/PRL system.
Physical Exam
Vital Signs/Labs
Vital Signs
Temp Pulse Resp BP Pulse Ox
36.7 C 79 18 113/70 96
09/16/24 03:20 09/16/24 06:00 09/16/24 03:20 09/16/24 05:42 09/16/24 06:42
09/14/24 09/15/24 09/16/24
11:59 11:59 11:59
Actual Weight 104.5 kg 108.2 kg 109.9 kg
09/16/24 03:36
09/16/24 03:36
PT 17.6 Sec (11.4-14.6) H 09/14/24 14:45
INR 1.39 09/14/24 14:45
APTT 30.9 Sec (23.4-35.0) 09/14/24 14:45
Magnesium 2.4 mg/dl (1.6-2.3) H 09/16/24 03:36
Physical Exam
Constitutional: No acute distress and Comfortable
EENT: Anicteric and Moist mucous membranes
Cardiovascular: Rhythm & rate is regular, Pedal edema is absent, JVD pressure is normal, S1S2 is normal and Murmur/rub/gallop absent
Respiratory: Respiratory effort normal and Other (Decreased throughout.)
GI: Soft, Distention absent, Flat, Non tender and Normal bowel sounds
Neuro/Psych: AO x 3
Data Reviewed
-
Date of Service: September 16, 2024
Medical Decision Making: Reviewed Test Results, Independent Historian Assessment, Test Interpretation and Review of Case with other Provider
EKG: Tracing Personally Visualized and interpreted and Report Reviewed by me
X-Ray/CT/US/MRI/NUC/PET: Image Personally Visualized and interpreted and Report Reviewed by me
Medical Tests (PFT, Pathology etc): Report Reviewed by me
Labs: Labs Reviewed by me
Old Records: Reviewed
[2024-09-16] MEDS: TYLENOL 1000 MG PO ×3 (08:04→22:42)
[2024-09-16] MEDS: SENOKOT-S 1 TABLET PO ×2 (08:05→20:49)
[2024-09-16] MEDS: LOW STRENGTH ASPIRIN 81 MG PO (08:05)
[2024-09-16] MEDS: PACERONE 200 MG PO ×3 (08:05→22:42)
[2024-09-16] MEDS: LOPRESSOR 12.5 MG PO ×2 (08:05→20:49)
[2024-09-16] MEDS: COLCHICINE 0.3 MG PO (08:06)
[2024-09-16] MEDS: PLAVIX 75 MG PO (08:06)
[2024-09-16] MEDS: FARXIGA 10 MG PO (08:06)
[2024-09-16] MEDS: NEURONTIN 100 MG PO ×3 (08:06→22:41)
[2024-09-16] MEDS: GLUCOPHAGE 1000 MG PO ×2 (08:06→16:40)
[2024-09-16] MEDS: LIDOCAINE 4% PATCH 1 PATCH TOPICAL (08:07)
[2024-09-16] MEDS: PROTONIX 40 MG PO (08:07)
[2024-09-16] MEDS: LASIX 40 MG IV (08:07)
[2024-09-16] MEDS: BACTROBAN 2% OINTMENT 1 APPLIC NASAL ×2 (08:08→20:48)
--- NOTE | 2024-09-16 08:30 | PTCARENOTE ---
Received from night warehouse selector RN; AAOx3, responds spontaneously to RN and follows commands; VSS; SR with PVC's on monitor; Friction rub present; +1 B/L ankle and hand edema, Trace generalized edema; +2 DP and radial pulses; Lungs diminished throughout;
Shallow respirations; 93-97% on 2L NC; Non-productive, occasional cough; CTx4 connected to -20 cm wall suction draining serosanguineous drainage - no tidaling, crepitus, or air leak noted; Hypoactive BS; Surgical sites intact; Right leg ARNALDO drain
draining serosanguineous drainage; RIJ Cordis with KVO and insulin infusing - see nursing flowsheets for further details; PIV x1 #20 right hand; See nursing documentation for further details.
[2024-09-16 09:07] LABS: Glucose - Point of Care 178 mg/dl (70-99)
[2024-09-16 11:06] LABS: Glucose - Point of Care 149 mg/dl (70-99)
[2024-09-16] MEDS: LANTUS 0.1 UNITS SC (12:00)
--- NOTE | 2024-09-16 12:52 | PTCARENOTE ---
Chest tubes discontinued and pulled at 0945 - VSS throughout and no complications noted; Patient ambulating in hallways with RN and cardiac rehab; IV Lasix 40 mg ordered and given
[2024-09-16 13:02] LABS: Glucose - Point of Care 133 mg/dl (70-99)
--- NOTE | 2024-09-16 16:19 | PTCARENOTE ---
Insulin drip discontinued at 1350; ARNALDO drain remains in place in RLE due to significant serosanguineous drainage; Patient ambulating in hallways with RN
[2024-09-16 16:37] LABS: Glucose - Point of Care 163 mg/dl (70-99)
[2024-09-16] MEDS: NOVOLOG FLEXPEN SC (17:39)
--- NOTE | 2024-09-16 21:00 | PTCARENOTE ---
Patient received OOB in chair. Patient A+A+Ox3. No neurological deficits noted. Patient assisted to bed with assist x1. Sternal Precautions. No c/o headache, dizziness or lightheadedness. Room air. Mild DE LA CRUZ. SpO2 90%. 2L O2 HS. Chest tube
dressing intact. Sinus Rhythm. Heart rate 70's. No c/o chest pain, pressure or discomfort. Normoactive bowel sounds. No BM. Positive flatus. No c/o nausea. No vomiting. Voiding without difficulty. Generalized edema. Positive, palpable
pulses. Sternal dressing intact. Right groin puncture site intact - Ecchymotic. Right knee incision intact - Surgical adhesive - Open to air. Chidi-Garcia drain - Empty and compress - 50 ml serosanguineous drainage. Right I.J. Cordis.
Assessment as documented.
[2024-09-16 22:37] LABS: Glucose - Point of Care 126 mg/dl (70-99)
[2024-09-16] MEDS: LANTUS 0.15 UNITS SC (22:41)
[2024-09-16] MEDS: CRESTOR 20 MG PO (22:42)
[2024-09-17] VITALS (12 sets, daily range): BP systolic 97–121; BP diastolic 58–71; BMI 32.7
--- NOTE | 2024-09-17 00:30 | PTCARENOTE ---
Patient sleeping without difficulty. No further changes from previous assessment.
--- NOTE | 2024-09-17 04:00 | PTCARENOTE ---
Patient A+A+Ox3. No neurological deficits noted. Resting in bed. AM lab work collected and sent. No c/o pain or discomfort. Voided 700 ml yellow urine. Chidi-Garcia 20 ml. Patient back to sleep. Assessment/Interventions as documented.
[2024-09-17 04:06] LABS: Hematocrit 26.3 % (39.0-52.0); Hemoglobin 9.1 g/dL (13.0-18.0); Mean Corp Hgb Conc. 34.6 g/dL (33.0-37.0); Mean Corpuscular Hgb 32.3 pg (27.0-31.0); Mean Corpuscular Volume 93.3 fL (80.0-94.0); Mean Platelet Volume 9.7 fL (7.4-10.4); Platelet Count 137 10^3/uL (130-400); Red Blood Cell Count 2.82 10^6/uL (4.70-6.10); Red Cell Dist. Width 13.2 % (11.5-14.5); White Blood Cell Count 7.9 10^3/uL (4.8-10.8)
[2024-09-17 04:29] LABS: Blood Urea Nitrogen 19 mg/dl (9-20); Calcium 8.1 mg/dl (8.4-10.2); Carbon Dioxide 30 mmol/L (22-30); Chloride 99 mmol/L (98-107); Estimated Creatinine Clearance > 125 ml/min; Glucose 101 mg/dl (70-99); Magnesium 2.1 mg/dl (1.6-2.3); Potassium 4.3 mmol/L (3.5-5.1); Sodium 135 mmol/L (135-145); eGFR > 60.00
--- NOTE | 2024-09-17 04:34 | W.PN.CT ---
Today's Communication / Plan
-
Plan:
-No major issues overnight. Hemodynamically and neurologically intact
-Off all drips but insulin per protocol, will transition off today
-Tele phase when off insulin gtt
-Diabetes education/management EDUCATIONAL DIAGNOSTICIAN following
-D/C Right LE ARNALDO 70/245 if no significant drainage when OOB
-D/C cordis
-Diuresis if BP permits, wt up 11lbs from preop yesterday, check wt today
-Cont. current meds (ASA, Plavix, Lopressor switched to Toprol XL, Crestor, Amiodarone)
-Encourage use of IS
-Wean off of O2
-OOB into chair/Ambulate
-No temporary PW to cut
-Home likely tomorrow
Assessment / Plan
-
s/p CABG x 4 (BLANCA to LAD, GSV to D1, GSV to OM2, GSV to RPDA), by Dr. Dominique, 09/14/24, POD#3
-CAD
-HFrEF (40-45%)
-DMII
-Class 1 obesity (BMI 32.4)
-GERD
-Liriano's esophagus
-acute blood loss anemia (stable without blood transfusion)
-Acute postop thrombocytopenia (stable without active bleed)
-Acute postop atelectasis
-Acute postop hypovolemia with subsequent hypervolemia
Discussed patient care with: Cardiology, Nursing, Respiratory Therapy, Pharmacy and Care Team
Subjective
Procedure
s/p CABG x 4 (BLANCA to LAD, GSV to D1, GSV to OM2, GSV to RPDA) on 09/14/[address] Dominique
-
Date of Service: September 17, 2024
Pt c/o mild incisional pain, states pain improved following removal of chest tubes yesterday
Objective Data
-
Lab Results
02/02/25 03:46
09/17/24 03:46
PT 17.6 Sec (11.4-14.6) H 09/14/24 14:45
INR 1.39 09/14/24 14:45
APTT 30.9 Sec (23.4-35.0) 09/14/24 14:45
Vital Signs
Vital Signs
Temp Pulse Resp BP Pulse Ox
98.4 F 72 16 113/71 96
09/17/24 03:40 09/17/24 03:40 09/17/24 03:40 09/17/24 03:40 09/17/24 03:[address]
CT Intake/Output/Weight
09/16/24 09/16/24 09/17/24
06:59 18:59 06:59
Intake Total 960.5 / 2038.7 956.9 / 1536.9 580 / 1536.9
Output Total 890 / 1740 1945 / 3015 1070 / 3015
Balance 70.5 / 298.7 -988.1 / -1478.1 -490 / -1478.1
SaO2: 96 (2L)
Physical Exam
-
General: Awake, Oriented and AOx3
Cardiovascular: Regular rate & rhythm, No Murmurs and No Rub
Respiratory: Decreased Breath Sounds (at bases, otherwise clear)
Sternum: Stable
Incision: Clean, Dry, Intact and Dressing Intact
Extremities: Other (+trace edema)
Data Reviewed
-
Lab Results: Results Reviewed
Medications: Active Meds Reviewed
Chest X-Ray: Report Reviewed and Image Reviewed
ECG: Report Reviewed and Image Reviewed
[2024-09-17] MEDS: TYLENOL PO (05:27)
[2024-09-17] MEDS: ULTRAM 50 MG PO ×2 (06:06→21:05)
[2024-09-17] MEDS: TORADOL 15 MG IV ×2 (07:36→22:48)
[2024-09-17] MEDS: LOW STRENGTH ASPIRIN 81 MG PO (07:49)
[2024-09-17] MEDS: PROTONIX 40 MG PO (07:49)
[2024-09-17] MEDS: GLUCOPHAGE 1000 MG PO ×2 (07:49→17:39)
[2024-09-17] MEDS: LIDOCAINE 4% PATCH 1 PATCH TOPICAL (07:49)
[2024-09-17] MEDS: PLAVIX 75 MG PO (07:49)
[2024-09-17] MEDS: NEURONTIN 100 MG PO ×3 (07:50→22:48)
[2024-09-17] MEDS: SENOKOT-S 1 TABLET PO ×2 (07:50→19:54)
[2024-09-17] MEDS: MAGNESIUM OXIDE 500 MG PO ×2 (07:50→19:53)
[2024-09-17] MEDS: FARXIGA 10 MG PO (07:50)
[2024-09-17] MEDS: PACERONE 200 MG PO ×3 (07:50→22:48)
[2024-09-17] MEDS: COLCHICINE 0.3 MG PO (07:51)
[2024-09-17] MEDS: BACTROBAN 2% OINTMENT 1 APPLIC NASAL ×2 (08:03→19:53)
[2024-09-17 08:12] LABS: Glucose - Point of Care 118 mg/dl (70-99)
[2024-09-17] MEDS: TOPROL XL 25 MG PO (08:25)
[2024-09-17] MEDS: LASIX 40 MG IV ×2 (08:25→15:30)
[2024-09-17] MEDS: KCL 40 MEQ PO (08:25)
--- NOTE | 2024-09-17 09:41 | PTCARENOTE ---
Patient care assumed from nightshift RN. Patient OOB in chair. Complains of 7/10 sternal pain. Pain medications ordered by DIGITAL ACCOUNT DIRECTOR. Patient achieved relief following IV pain med administration. Vital signs stable. NSR 70s. +1 generalized edema. Lasix
40mg IV given. Voiding without complication. Tolerating meals. No BM yet, however bowel sounds and flatus present. Pulses palpable in upper and lower extremities bilaterally. OOB, I.S, and ambulation in hallways encouraged frequently. ARNALDO drain from
RLE removed by DIGITAL ACCOUNT DIRECTOR. ALBA Landry present.
[2024-09-17] MEDS: NSS IV (10:36)
[2024-09-17 11:47] LABS: Glucose - Point of Care 165 mg/dl (70-99)
[2024-09-17] MEDS: ENTRESTO 24 MG/26 MG 1 TAB PO ×2 (12:31→19:53)
--- NOTE | 2024-09-17 12:52 | PTCARENOTE ---
Patient vital signs stable. Remains on room air with adequate O2 sats. NSR. OOB in chair, frequent ambulation in hallways, well tolerated. Consuming meals. Voiding frequently, measuring intake and output closely. RIJ cordis discontinued. PIV in
place. Sternal aquacell clean dry intact. RLE ARNALDO drain dressing changed as needed. Patient using I.S often.
--- NOTE | 2024-09-17 13:16 | W.PN.CD ---
Today's Communication / Plan
-
-Continue routine post-operative management as directed by CT Surgery.
-Telemetry stable; remains in sinus rhythm.
Impression / Plan
-
Impression/Plan: 59 y/o male (patient of Dr. Morales, [facility]) with history of CAD/PCI, ICMO (LVEF 40-45%), hypertension, dyslipidemia, DM, and smoking admitted for elective CABG.
#CAD
-Stable S/P CABG x 4 (BLANCA to LAD, GSV to D1, GSV to OM2, GSV to RPDA), Dr. Dominique 09/14/24:
-Continue routine post-operative management as directed by CT Surgery.
-Continue aspirin, Plavix, Toprol-XL, and rosuvastatin.
-Telemetry stable; remains in sinus rhythm.
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
-OP notes report EF 40-45%, operative report 50%.
-Continue GDMT with Farxiga, Entresto, and Toprol-XL.
#Hypertension
-Stable/controlled
-Continue medications as above.
#Dyslipidemia
-Stable; continue rosuvastatin 20 mg daily.
-Goal LDL < 55.
#NIDDM
-Chronic.
-Management as per primary surgical team.
#Smoking
-Chronic.
-Cessation strongly recommended.
DATA:
Cardiac Catheterization, 08/25/2024:
CORONARY ANGIOGRAPHY
Dominance: right
LM: Large with mild disease
LAD: Large vessel giving rise to a large D1 and small D2. There are stents in the proximal to mid LAD jailing the D1 with moderate ISR. There is a stent in the D1 with moderate ISR. The remainder the vessel has diffuse mild disease.
LCx: Large vessel giving rise to a small OM1, large OM 2, and moderate caliber OM 3. The vessel is totally occluded before OM2 with OM2 and OM3 filled retrograde via robust left to left collaterals.
RCA: Large vessel with multiple stents in the proximal to mid portion. There is a total occlusion proximally within stent. There are faint right to right collaterals and robust [id number] collaterals filling the distal RPDA/PRL system.
Physical Exam
Vital Signs/Labs
Vital Signs
Temp Pulse Resp BP Pulse Ox
98.2 F 69 18 121/62 97
09/17/24 12:26 09/17/24 13:00 09/17/24 12:26 09/17/24 12:26 09/17/24 13:01
09/16/24 09/17/24 09/18/24
06:59 06:59 06:59
Actual Weight 109.9 kg 109.3 kg
09/17/24 03:46
09/17/24 03:46
PT 17.6 Sec (11.4-14.6) H 09/14/24 14:45
INR 1.39 09/14/24 14:45
APTT 30.9 Sec (23.4-35.0) 09/14/24 14:45
Magnesium 2.1 mg/dl (1.6-2.3) 09/17/24 03:46
Physical Exam
Constitutional: No acute distress and Comfortable
EENT: Anicteric
Cardiovascular: Rhythm & rate is regular, Systolic murmur absent, Pedal edema present (Trace) and S1S2 is normal
Respiratory: Respiratory effort normal, Lungs clear to auscul. and Wheeze Absent
GI: Soft
Neuro/Psych: AO x 3
Other: Skin (Warm, dry, intact)
Data Reviewed
-
Date of Service: September 17, 2024
EKG: Tracing Personally Visualized and interpreted (Telemetry: Sinus rhythm)
Labs: Labs Reviewed by me
Critical Care Time (in minutes): 36
[2024-09-17] MEDS: TYLENOL 1000 MG PO ×2 (14:10→22:48)
[2024-09-17] MEDS: KCL 20 MEQ PO (15:30)
[2024-09-17 17:31] LABS: Glucose - Point of Care 186 mg/dl (70-99)
--- NOTE | 2024-09-17 17:41 | PTCARENOTE ---
Patient vital signs stable. OOB in chair. Denies significant pain. Pt received second dose of IV lasix 40mg. Voiding without complications. I&O recorded. Pt had bowel movement.
[2024-09-17] MEDS: CALCIUM GLUCONATE 100 IV (19:53)
--- NOTE | 2024-09-17 21:30 | PTCARENOTE ---
Patient received OOB in chair. Patient A+A+Ox3. No neurological deficits noted. No c/o headache, dizziness or lightheadedness. Room air. SpO2 92%. Sinus Rhythm. Heart rate 70's. No c/o chest pain, pressure or discomfort. Normoactive bowel
sounds. No c/o nausea. Voiding without difficulty. Calcium Gluconate 2gram/100ml IV over 1hr administered per PA order (Stan MCKNIGHT-C). Sternal dressing intact. Chest tube dressing. Tape hickey/scabbed areas noted to right lateral chest
and left lateral chest region - Scabbed - No drainage noted. Right groin dressing intact - Area ecchymotic. Right knee incision - Surgical adhesive - Intact - Open to air. RLE - Dressing intact s/p Chidi-Garcia drain removal - Dressing intact.
Positive, palpable pulses. Trace generalized edema. Patient walked in hallway. Mild DE LA CRUZ. Now in bed. 2L O2 placed. Ultram 50mg PO for pain management. Assessment as documented.
[2024-09-17 22:38] LABS: Glucose - Point of Care 137 mg/dl (70-99)
[2024-09-17] MEDS: LANTUS 0.15 UNITS SC (22:47)
[2024-09-17] MEDS: CRESTOR 20 MG PO (22:47)
[2024-09-18] VITALS (10 sets, daily range): BP systolic 93–120; BP diastolic 62–82; PULSE 66; O2SAT 95–96; BMI 32.1
--- NOTE | 2024-09-18 00:30 | PTCARENOTE ---
Patient with c/o 8/10 sternal pain. PA made aware. Toradol 15mg IV ordered and administered with positive relief provided. Patient given CHG bath and linens changed. Chest tube sutures (4) open to air. RLE dressing intact. Patient resting in
bed. No further changes from previous assessment.
--- NOTE | 2024-09-18 04:00 | PTCARENOTE ---
Patient resting in bed. Patient A+A+Ox3. No neurological deficits noted. Patient with no c/o pain or discomfort. AM lab work collected and sent. Assessment/Interventions as documented.
--- NOTE | 2024-09-18 04:02 | W.PN.CT ---
Today's Communication / Plan
-
Plan:
-No major issues overnight. Hemodynamically and neurologically intact
-Off all drips
-F/U 2-view cxr
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
-Cont. diuresis wt was up 11lbs from preop yesterday, check wt today. Fluid restriction
-Monitor hyponatremia 133, should improve with more diuresis today and fluid restriction
-Cont. current meds (ASA, Plavix, Toprol XL, Crestor, Amiodarone)
-Encourage use of IS
-Wean off of O2
-OOB into chair/Ambulate
-No temporary PW to cut
-Encourage smoking cessation
-Home today
Assessment / Plan
-
s/p CABG x 4 (BLANCA to LAD, GSV to D1, GSV to OM2, GSV to RPDA), by Dr. Dominique, 09/14/24, POD#4
-CAD
-HFrEF (40-45%)
-DMII
-Class 1 obesity (BMI 32.4)
-GERD
-Liriano's esophagus
-acute blood loss anemia (stable without blood transfusion)
-Acute postop thrombocytopenia (stable without active bleed)
-Acute postop atelectasis
-Acute postop hypovolemia with subsequent hypervolemia
-Acute postop hyponatremia, 133
Discussed patient care with: Cardiology, Nursing, Respiratory Therapy, Pharmacy and Care Team
Subjective
Procedure
s/p CABG x 4 (BLANCA to LAD, GSV to D1, GSV to OM2, GSV to RPDA) on 09/14/[address] Dominique
-
Date of Service: September 18, 2024
Pt c/o mild incisional pain, otherwise feels well. Ambulating halls without difficulty
Objective Data
-
PT 17.6 Sec (11.4-14.6) H 09/14/24 14:45
INR 1.39 09/14/24 14:45
APTT 30.9 Sec (23.4-35.0) 09/14/24 14:45
Vital Signs
Vital Signs
Temp Pulse Resp BP Pulse Ox
98.4 F 75 18 113/67 95
09/17/24 22:40 09/18/24 00:02 09/17/24 22:40 09/17/24 22:48 09/17/24 22:40
CT Intake/Output/Weight
09/17/24 09/17/24 09/18/24
06:59 18:59 06:59
Intake Total 590 / 1556.9 1000 / 1340 340 / 1340
Output Total 1070 / 3015 2725 / 4025 1300 / 4025
Balance -480 / -1458.1 -1725 / -2685 -960 / -2685
SaO2: 95 (RA)
Physical Exam
-
General: Awake, Oriented and AOx3
Cardiovascular: Regular rate & rhythm, No Murmurs, Rub (mild rub, likely secondary to acute postop pericarditis (on Colchicine)) and No Gallop
Respiratory: Decreased Breath Sounds (at bases, otherwise clear)
Sternum: Stable
Incision: Clean, Dry, Intact and Dressing Intact
Extremities: No Edema
Data Reviewed
-
Lab Results: Results Reviewed
Medications: Active Meds Reviewed
Chest X-Ray: Report Reviewed and Image Reviewed
ECG: Report Reviewed and Image Reviewed
[2024-09-18 04:47] LABS: Blood Urea Nitrogen 18 mg/dl (9-20); Calcium 8.9 mg/dl (8.4-10.2); Carbon Dioxide 29 mmol/L (22-30); Chloride 98 mmol/L (98-107); Estimated Creatinine Clearance 124 ml/min; Glucose 115 mg/dl (70-99); Magnesium 2.1 mg/dl (1.6-2.3); Potassium 4.2 mmol/L (3.5-5.1); Sodium 133 mmol/L (135-145); eGFR > 60.00
[2024-09-18 05:01] LABS: Hematocrit 26.6 % (39.0-52.0); Hemoglobin 9.3 g/dL (13.0-18.0); Mean Corpuscular Hgb 32.4 pg (27.0-31.0); Mean Corpuscular Volume 92.7 fL (80.0-94.0); Mean Platelet Volume 9.8 fL (7.4-10.4); Platelet Count 173 10^3/uL (130-400); Red Blood Cell Count 2.87 10^6/uL (4.70-6.10); Red Cell Dist. Width 13.1 % (11.5-14.5); White Blood Cell Count 6.1 10^3/uL (4.8-10.8)
[2024-09-18] MEDS: TYLENOL PO (05:48)
[2024-09-18] MEDS: LASIX 40 MG IV (06:21)
[2024-09-18] MEDS: KCL 40 MEQ PO (06:21)
[2024-09-18 08:30] LABS: Glucose - Point of Care 142 mg/dl (70-99)
[2024-09-18] MEDS: PLAVIX 75 MG PO (08:31)
[2024-09-18] MEDS: PACERONE 200 MG PO ×2 (08:31→15:54)
[2024-09-18] MEDS: GLUCOPHAGE 1000 MG PO ×2 (08:31→16:41)
[2024-09-18] MEDS: ULTRAM 25 MG PO (08:32)
[2024-09-18] MEDS: SENOKOT-S 1 TABLET PO (08:32)
[2024-09-18] MEDS: FARXIGA 10 MG PO (08:32)
[2024-09-18] MEDS: ENTRESTO 24 MG/26 MG 1 TAB PO (08:32)
[2024-09-18] MEDS: COLCHICINE 0.3 MG PO (08:33)
[2024-09-18] MEDS: PROTONIX 40 MG PO (08:33)
[2024-09-18] MEDS: NEURONTIN 100 MG PO ×2 (08:33→15:54)
[2024-09-18] MEDS: MAGNESIUM OXIDE 500 MG PO (08:33)
[2024-09-18] MEDS: LOW STRENGTH ASPIRIN 81 MG PO (08:33)
[2024-09-18] MEDS: LIDOCAINE 4% PATCH TOPICAL (08:34)
[2024-09-18] MEDS: BACTROBAN 2% OINTMENT 1 APPLIC NASAL (08:34)
[2024-09-18] MEDS: TOPROL XL 25 MG PO (08:38)
--- NOTE | 2024-09-18 08:39 | PN.DE.MGMTRT ---
Insulin Management
- -
09/18/2024: Diabetes Management follow up
59 year old male with PMH: HTN, HLD, HFrEF (40-45%), CAD, has multiple stents in the past, 2010, 2012, and 2017, Smoking, GERD/Liriano's esophagitis, diverticulosis, h/o melanoma, h/o right rotator cuff repair 2016, and T2DM. Pt presented with chest
pain and shortness of breath, found to have multivessel coronary disease. 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 He had no glucose meter at one point but does not test his blood sugars. States Jardiance was started 6 months
ago. A1C 8.8%, Cr 0.7, eGFR >60
POD # 4 s/p post CABG x 4 and doing well. Awake, alert, oriented, sitting up in chair, offers no complaints, able to discuss diabetes care.
Transitioned off glycemic protocol to SQ and oral regimen on Wednesday
Premeal glucose range 118 to 186, FBG 115(V), 142 POC this AM.
Will make no changes to current regimen: Lantus 15 units @ HS, Metformin 1000mg BID and Farxiga 10mg daily(was taking Jardiance 25mg daily at home)
Emphasized the importance of optimal glucose control to prevent any short and air bag stripper complications.
Provided with Contour Next EZ glucometer, and insulin instructions with good return demonstration, result 177 mg/dl before lunch, please see Education noted for details. Will send Rx for meter and supplies.
Diabetes History
- -
Type of Diabetes: 2 requiring insulin
Pre-Admission Diabetes Regimen
09/18/24
03:53
Creatinine 0.8
Lab Results
Hemoglobin A1c 8.8 % (4.0-5.6) H 09/07/24 12:26
Insulin Pump Settings
IP Diabetes Regimen
09/17/24 09/17/24 09/17/24
11:46 17:30 22:36
Glucose
POC Glucose 165 H 186 H 137 H
09/18/24 09/18/24
03:53 08:29
Glucose 115 H
POC Glucose 142 H
Meal type: Dinner
Meal type: Lunch
Amount consumed: 100%
Amount consumed: 100%
Patient Education
--- NOTE | 2024-09-18 08:45 | PTCARENOTE ---
Received pt from shift nurse manager RN; pt AAOx3 and resting comfortably in chair; pt ambulating hallways; NSR on monitor and VSS; PIV x1 patent; Lungs diminished and IS to 2000; positive bowel sounds; pt voiding yellow urine; no edema noted; palpable
pulses throughout; all surgical sites C/D/I; see nursing documentation for further details.
--- NOTE | 2024-09-18 09:08 | W.DCSUMMARY ---
Addendum entered and electronically signed by SO Chin 09/18/24 17:33:
Secondary diagnoses:
14. Incidental finding of small subpleural blebs on chest CT from 09/12/2024.
Patient instructed to follow-up with Dr. Pop in 6 weeks for outpatient surveillance
Original Note:
Discharge Summary
Discharge Data
Date of Admission: 09/14/24
Date of Discharge: 09/18/24
-
Pending Results: No
Hospital Course
Primary care physician: Gil Avila
Outpatient web feeder: Tommy Morales
Inpatient consultants: [facility] Cardiology, pulmonary tack driller, diabetes nurse practitioner
Procedures:
1. CABG
Primary Diagnosis:
1. Triple-vessel coronary disease
Secondary Diagnoses:
1. Hx of multiple cardiac stents
2. Tobacco abuse�current
3. HFrEF (40-45%)
4. DMII (A1C 8.8)
5. Class 1 obesity (BMI 32.4)
6. GERD
7. Liriano's esophagus
8. Acute postop blood loss anemia (stable without blood transfusion)
9. Acute postop thrombocytopenia (stable without active bleed)
10. Acute postop atelectasis requiring bedside
11. Acute postop hypervolemia
12. Acute postop hyponatremia, 133
13. Post-op suspected pericarditis (+rub)
HPI: 59-year-old male was electively admitted on 09/14/2024 for CABG due to triple-vessel coronary disease
Hospital course: Patient underwent CABG x 4 (BLANCA to LAD, GSV to D1, GSV to OM2, GSV to RPDA) with Dr. Jaime Dominique. Patient required no intraoperative blood products. Postprocedure PETR reported EF of 50%. Patient returned to CVICU on Levophed
at 2, insulin, and Precedex. Initial postop chest x-ray showed right upper lobe opacity consistent with atelectasis and a bedside bronchoscopy was performed by pulmonary tack driller for mucous plugging. Subsequent x-rays greatly improved. Patient
was extubated at 1615 on the day of surgery. Aspirin and Plavix were initiated per protocol on postoperative day 1. On postoperative day #2, 2 mediastinal and bilateral pleural chest tubes were removed. Patient was evaluated by diabetic nurse
practitioner and insulin infusion discontinued with Lantus 15u added at night. Metformin was increased to 1000 mg twice daily. On postoperative day #3, Entresto was resumed. Weight was up 4 kg and patient was diuresed with Lasix 40 mg x 2 with
excellent diuresis. Right lower extremity ARNALDO drain was removed. On postoperative day #4, patient's weight had decreased to 107 kg with a baseline weight documented at 105 kg. Patient ambulated in the halls independently. A two-view chest x-ray
reported clear lung adair without pneumothorax. Hemoglobin 9.3, sodium 133 and creatinine 0.8 on day of discharge. Patient prescribed Lasix 20 mg daily x 10 days to assist in achieving baseline weight. Patient was seen by Dr. Dominique and
agreeable for discharge home today. Suture was removed from right lower extremity ARNALDO site. 15 incision clean dry and intact without erythema. Patient will be seen by transitional nurse for follow-up BMP in 1 week.
Home medication changes:
Metformin increased to 1000 mg twice daily
Discharge Plan
-
Patient Disposition: Home (Routine Discharge)
Discharge Diagnosis/Procedures: CAD/CABG x 4
Condition: Good
Diet: Low Cholesterol, Low Sodium and Diabetic, Carb Controlled
Activity: No strenuous activity
Driving Restrictions: Not until seen by your Dr
Bathing Restrictions: OK to Shower
Blood Work: BMP in 1 week
Other Services: Cardiac Rehab
Specialty Instructions: Weigh Daily- Call MD for wt gain/loss 3 lbs overnight/5 lbs in 1 week
Activity Restrictions/Additional Instructions:
Look into Phase II Cardiac Rehab (although not covered with current insurance)
[facility]- handout in DC packet
[phone] or [phone]
If not covered check out Phase 4 Cardiac Rehab at [facility] in [facility] (no tele) this program is called [facility] ([facility] can help you enroll: [phone])
Referrals:
CT Transitional Care Nurse [Outside] (The Cardiothoracic Transitional Care Nurse will call you to set up a visit in 1-2 days.)
Dedrick Pop MD [Active] -
(Lung cancer screening, follow-up CT imaging for nodule
Treatment for COPD
Tobacco cessation
Follow-up in 6 weeks)
Gil Avila DO [Family Provider] -
Tommy Morales DO [Non-Admitting Privileges] - 10/26/24 2:40 pm
Jaime Dominique MD [Active] - 10/17/24 3:30 pm
Prescriptions:
New
clopidogrel 75 mg Tablet
75 mg PO DAILY Qty: 30 1RF
colchicine 0.6 mg Tablet
0.6 mg PO DAILY Qty: 30 0RF
pantoprazole 40 mg Tablet,Delayed Release (Dr/Ec)
40 mg PO DAILY Qty: 30 1RF
gabapentin 100 mg Capsule
100 mg PO TID Qty: 30 0RF
metformin 1,000 mg Tablet
1,000 mg PO BID@0800,1700 Qty: 60 2RF
insulin glargine [Lantus Solostar U-100 Insulin] 100 unit/mL (3 mL) insulin pen
15 unit SC DAILY Qty: 15 2RF
(DME) Contour Next Test Strips Strip
Qty: 60 0RF
Rx Instructions:
Pt Testing 2 times a day
(DME) lancets [Microlet Lancet] Misc
Qty: 60 0RF
Rx Instructions:
Pt testing 2 times a day
insulin glargine 100 unit/mL (3 mL) Insulin Pen
15 unit SC DAILY Qty: 5 0RF
Rx Instructions:
Take once a day at bedtime
furosemide [Lasix] 20 mg tablet
20 mg PO DAILY Qty: 10 0RF
Continued
aspirin 81 mg Tablet,Delayed Release (Dr/Ec)
81 mg PO HS
metoprolol succinate 25 mg Tablet Extended Release 24 Hr
25 mg PO HS
rosuvastatin 20 mg Tablet
20 mg PO HS
cholecalciferol (vitamin D3) 100 mcg (4,000 unit) Tablet
100 mcg PO HS
Jardiance 25 mg Tablet
25 mg PO DAILY
[place]-3 350 mg-235 mg- 90 mg-597 mg Capsule,Delayed Release(Dr/Ec)
1 cap PO HS
sacubitril-valsartan [Entresto] 24-26 mg Tablet
1 tab PO BID
Discontinued
metformin 500 mg Tablet
500 mg PO BID
omeprazole 20 mg Tablet,Delayed Release (Dr/Ec)
20 mg PO DAILY
psyllium husk 6 gram Powder In Packet
10 g PO DAILY
quercetin 500 mg Capsule
500 mg PO DAILY
Discharge Orders:
Discharge Patient (As Directed); Ordered 09/18/24
Ordered By: Christina Wadsworth
Care Plan Goals
Care Plan Goals:
Problem: Readiness for enhanced knowledge related to diagnosis and treatment plan
Goal: Understand your diagnosis and treatment plan needs, including medications if applicable.
Instructions: Know your diagnosis, underlying causes and treatment plan options, including medications if applicable. Consult with your health care team to learn about your diagnosis and treatment plan, including medications if applicable.
Discharge Date and Time
Print Language: PERSIAN
--- NOTE | 2024-09-18 10:52 | W.PN.CD ---
Today's Communication / Plan
-
Incentive spirometry.
Ambulate.
Continue diuresis. Monitor Na with diuresis/hemoconcentration.
Impression / Plan
-
Impression/Plan: 59 y/o male (patient of Dr. Morales, [facility]) with history of CAD/PCI, ICMO (LVEF 40-45%), hypertension, dyslipidemia, DM, and smoking admitted for elective CABG.
#CAD
-Stable S/P CABG x 4 (BLANCA to LAD, GSV to D1, GSV to OM2, GSV to RPDA), Dr. Dominique 09/14/24.
-Routine post-operative management as directed by CT Surgery.
-Continue amiodarone, aspirin, clopidogrel, metoprolol succinate and rosuvastatin.
-Continue furosemide 40 mg IV.
-Incentive spirometry.
-Ambulate.
#Acute on chronic HFmrEF/ICMO (EF 40-50%)
-OP notes report EF 40-45%, operative report 50%.
-Weight still up significantly from baseline. Still significantly symptomatic with clear volume to give.
-Agree with continued diuresis (furosemide 40 mg IV BID).
-GDMT with dapagliflozin, metoprolol succinate.
-Tolerating re-addition of sacubitril-valsartan.
#Hypertension
-Stable/controlled
-Continue sacubitril-valsartan, metoprolol.
-Monitor BP with diuresis.
#Dyslipidemia
-Stable; continue rosuvastatin 20 mg daily.
-Goal LDL < 55.
#NIDDM
-Chronic.
-Management as per primary surgical team.
-Continue dapagliflozin 10 mg daily as inpatient, resume empagliflozin 25 mg as an outpatient.
-BMI 32 with CAD. Patient would benefit from outpatient GLP-1.
#Smoking
-Chronic.
-Cessation strongly recommended.
Subjective/Interval History:
Weight down 2 kg from yesterday (109.3 --> 107.3; baseline 104.5 kg).
SaO2 98% on RA.
Started on colchicine.
Na 133 today.
Feels short of breath with ambulation.
DATA:
Cardiac Catheterization, 08/25/2024:
CORONARY ANGIOGRAPHY
Dominance: right
LM: Large with mild disease
LAD: Large vessel giving rise to a large D1 and small D2. There are stents in the proximal to mid LAD jailing the D1 with moderate ISR. There is a stent in the D1 with moderate ISR. The remainder the vessel has diffuse mild disease.
LCx: Large vessel giving rise to a small OM1, large OM 2, and moderate caliber OM 3. The vessel is totally occluded before OM2 with OM2 and OM3 filled retrograde via robust left to left collaterals.
RCA: Large vessel with multiple stents in the proximal to mid portion. There is a total occlusion proximally within stent. There are faint right to right collaterals and robust [id number] collaterals filling the distal RPDA/PRL system.
Physical Exam
Vital Signs/Labs
Vital Signs
Temp Pulse Resp BP Pulse Ox
36.6 C 78 22 101/63 98
09/18/24 08:00 09/18/24 08:38 09/18/24 08:00 09/18/24 08:38 09/18/24 08:50
09/16/24 09/17/24 09/18/24
11:59 11:59 11:59
Actual Weight 109.9 kg 109.3 kg 107.3 kg
09/18/24 03:53
09/18/24 03:53
PT 17.6 Sec (11.4-14.6) H 09/14/24 14:45
INR 1.39 09/14/24 14:45
APTT 30.9 Sec (23.4-35.0) 09/14/24 14:45
Magnesium 2.1 mg/dl (1.6-2.3) 09/18/24 03:53
Physical Exam
Constitutional: No acute distress and Comfortable
EENT: Anicteric and Moist mucous membranes
Cardiovascular: Rhythm & rate is regular, JVD pressure is normal, Pedal edema present, S1S2 is normal and Murmur/rub/gallop absent
Respiratory: Respiratory effort normal, Lungs clear to auscul. and Other (Decreased throughout.)
GI: Soft, Distention absent, Flat, Non tender and Normal bowel sounds
Neuro/Psych: AO x 3
Data Reviewed
-
Date of Service: September 18, 2024
Medical Decision Making: Reviewed Test Results, Independent Historian Assessment, Test Interpretation and Review of Case with other Provider
EKG: Tracing Personally Visualized and interpreted and Report Reviewed by me
Echo: Report Reviewed by me
X-Ray/CT/US/MRI/NUC/PET: Image Personally Visualized and interpreted and Report Reviewed by me
Medical Tests (PFT, Pathology etc): Report Reviewed by me
Labs: Labs Reviewed by me
Old Records: Reviewed
--- NOTE | 2024-09-18 10:52 | CM ---
dc plan remains home today with f/u visit with ct transitional care
[2024-09-18 11:38] LABS: Glucose - Point of Care 139 mg/dl (70-99)
[2024-09-18] MEDS: TYLENOL 1000 MG PO (13:10)
--- NOTE | 2024-09-18 13:11 | PTCARENOTE ---
Pt showered self with CHG soap; eap consultant reapplied; NSR on monitor and VSS; assessment unchanged.
[2024-09-18] MEDS: NSS IV (14:10)
[2024-09-18 16:43] LABS: Glucose - Point of Care 118 mg/dl (70-99)
--- NOTE | 2024-09-18 17:21 | PN.DE ---
Diabetes Education
- -
Met with Mr. Taylor for monitor and insulin instructions. He has been provided with the Contour Next Ez glucometer. Reviewed proper testing technique for obtaining a blood glucose, new testing pattern given ACHS and expected results as noted in take
home education booklet. Discussed action of long acting insulins as well as symptoms and treatment of hypoglycemia. Aware to inject Long acting insulin in outer thigh, rotating sites. Aware to store insulin pens that are not in use in the
refrigerator. Instructions with good return demonstration using the glucometer and insulin pen were noted and result of 177 mg/dl 2 hrs after breakfast. Discussed importance of checking blood sugars 2x/day to assess food/medication effect on his BS,
reducing CHO intake, being active and losing weight. Provided information and handout on outpt education classes. Will need RX for test strips and lancets for the Contour Next Ez glucometer, testing 2x/day, Lantus as well as pen needles at discharge.
All questions and concerns were addressed and answered to his satisfaction.
== END 2024-09-18 18:26 | disposition home or self-care (01) | DRG 235 ==
LOC: CVICU 04:55
PROVIDERS: Anesthesiology; Nurse Practitioner; ADMITTING PHYSICIAN Thoracic Surgery (Cardiothoracic Vascular Surgery); CONSULT PHYSICIAN Internal Medicine; CONSULT PHYSICIAN Internal Medicine Critical Care Medicine; FAMILY PHYSICIAN Family Medicine
PROC: B24BZZ4 Ultrasonography of Heart with Aorta, Transesophageal (ICD-10-PCS; 2024-09-14)
PROC: 0BC48ZZ Extirpation of Matter from Right Upper Lobe Bronchus, Via Natural or Artificial Opening Endoscopic (ICD-10-PCS; 2024-09-14)
PROC: 06BP0ZZ Excision of Right Saphenous Vein, Open Approach (ICD-10-PCS; 2024-09-14)
PROC: 0BCB8ZZ Extirpation of Matter from Left Lower Lobe Bronchus, Via Natural or Artificial Opening Endoscopic (ICD-10-PCS; 2024-09-14)
PROC: 5A1221Z Performance of Cardiac Output, Continuous (ICD-10-PCS; 2024-09-14)
PROC: 02100ZC Bypass Coronary Artery, One Artery from Thoracic Artery, Open Approach (ICD-10-PCS; 2024-09-14)
PROC: 0BC68ZZ Extirpation of Matter from Right Lower Lobe Bronchus, Via Natural or Artificial Opening Endoscopic (ICD-10-PCS; 2024-09-14)
PROC: 021209W Bypass Coronary Artery, Three Arteries from Aorta with Autologous Venous Tissue, Open Approach (ICD-10-PCS; 2024-09-14)
DX: I25.10 Atherosclerotic heart disease of native coronary artery without angina pectoris (principal); I50.23 Acute on chronic systolic (congestive) heart failure; J98.11 Atelectasis; D62 Acute posthemorrhagic anemia; E87.1 Hypo-osmolality and hyponatremia; I30.8 Other forms of acute pericarditis; T17.590A Other foreign object in bronchus causing asphyxiation, initial encounter; D69.59 Other secondary thrombocytopenia; I49.3 Ventricular premature depolarization; E11.9 Type 2 diabetes mellitus without complications; I11.0 Hypertensive heart disease with heart failure; E78.5 Hyperlipidemia, unspecified; K21.9 Gastro-esophageal reflux disease without esophagitis; K22.70 Barrett's esophagus without dysplasia; E66.811 Obesity, class 1; I25.5 Ischemic cardiomyopathy; W44.F9XA Other object of natural or organic material, entering into or through a natural orifice, initial encounter; J20.9 Acute bronchitis, unspecified; J43.9 Emphysema, unspecified; F17.210 Nicotine dependence, cigarettes, uncomplicated; Z68.32 Body mass index [BMI] 32.0-32.9, adult; Z95.5 Presence of coronary angioplasty implant and graft; Z85.820 Personal history of malignant melanoma of skin; Z79.82 Long term (current) use of aspirin; Z79.84 Long term (current) use of oral hypoglycemic drugs
CPT/HCPCS: 36415; 71045; 71046; 71250; 80048; 80053; 81003; 81015; 82248; 82330; 82565; 82805; 82947; 82962; 83036; 83735; 84132; 84302; 84520; 85014; 85018; 85027; 85049; 85610; 85730; 86803; 86850; 86900; 86901; 86920; 87070; 93005; 93312; 93320; 93325; 93880; 93923; 93930; 94002; 94010; C1713; P9045; P9047